=== PATIENT | female | born 1945 | race Hispanic/Latino ===

== ENCOUNTER 2018-02-11 01:05 | Inpatient (IN) | payer MEDICARE ==
[2018-02-11 02:21] LABS: Basophils % (Auto) 0.5 % (0.0-1.8); Eosinophils # (Auto) 0.1 K/mm3 (0.0-0.4); Eosinophils % (Auto) 1.5 % (0.0-4.3); Hematocrit 40.6 % (30.3-42.9); Hemoglobin 13.6 gm/dl (10.1-14.3); Lymphocytes # (Auto) 1.4 K/mm3 (1.2-5.4); Lymphocytes % (Auto) 15.3 % (13.4-35.0); Mean Corpuscular HGB Conc 34 % (30-34); Mean Corpuscular Hemoglobin 29 pg (28-32); Mean Corpuscular Volume 86 fl (79-97); Monocytes # (Auto) 0.9 K/mm3 (0.0-0.8); Monocytes % (Auto) 9.9 % (0.0-7.3); Platelet Count 192 K/mm3 (140-440); Red Blood Count 4.71 M/mm3 (3.65-5.03); Red Cell Distribution Width 14.4 % (13.2-15.2)
[2018-02-11 02:41] LABS: Alanine Aminotransferase 20 units/L (7-56); Albumin 3.9 g/dL (3.9-5); BUN/Creatinine Ratio 26; Blood Urea Nitrogen 13 mg/dL (7-17); Calcium 9.8 mg/dL (8.4-10.2); Hemolysis Index 9
--- NOTE | 2018-02-11 06:58 | Emergency Department Report ---
ED Abdominal Pain HPI - General Chief Complaint: Abdominal Pain Stated Complaint: ABD PAIN Time Seen by Provider: 02/11/18 06:45 Source: patient Mode of arrival: Stretcher Limitations: No Limitations - History of Present Illness MD Complaint: abdominal pain -: Sudden Location: LLQ Radiation: LLQ Migration to: LLQ Severity scale (0 -10): 9 Quality: stabbing, aching Improves With: rest Worsens With: movement Associated Symptoms: denies: nausea, vomiting, diarrhea, fever, chills, constipation, dysuria, hematemesis, hematochezia, melena, hematuria, anorexia, syncope - Related Data Home Medications Medication Instructions Recorded Confirmed Last Taken Lisinopril [Zestril TAB] 40 mg PO QDAY 08/13/16 02/11/18 02/10/18 Amlodipine Besylate [Norvasc] 10 mg PO DAILY 02/11/18 02/11/18 02/10/18 Aspirin [Adult Low Dose Aspirin EC] 81 mg PO DAILY 02/11/18 02/11/18 Unknown Atorvastatin Calcium [Lipitor] 40 mg PO HS 02/11/18 02/11/18 02/10/18 Furosemide [Lasix TAB] 40 mg PO QDAY 02/11/18 02/11/18 02/10/18 Metoprolol Xl [Metoprolol 50 mg PO QDAY 02/11/18 02/11/18 02/10/18 SUCCINATE ER TAB] Allergies Allergy/AdvReac Type Severity Reaction Status Date / Time No Known Allergies Allergy Unverified 08/13/16 07:23 ED Review of Systems ROS: Stated complaint: ABD PAIN Other details as noted in HPI Constitutional: denies: chills, fever Eyes: denies: eye pain, eye discharge, vision change ENT: denies: ear pain, throat pain Respiratory: denies: cough, shortness of breath, wheezing Cardiovascular: denies: chest pain, palpitations Endocrine: no symptoms reported Gastrointestinal: denies: abdominal pain, nausea, diarrhea Genitourinary: denies: urgency, dysuria, discharge Musculoskeletal: denies: back pain, joint swelling, arthralgia Skin: denies: rash, lesions Neurological: denies: headache, weakness, paresthesias Psychiatric: denies: anxiety, depression Hematological/Lymphatic: denies: easy bleeding, easy bruising ED Past Medical Hx - Past Medical History Previous Medical History?: Yes Hx Hypertension: Yes Hx Arthritis: Yes Hx Headaches / Migraines: Yes - Surgical History Past Surgical History?: Yes Hx Breast Surgery: Yes (BREAST) Additional Surgical History: 3 HEAD ANEURYSM CLIPPINGS - Family History Family history: hypertension - Social History Smoking Status: Never Smoker Substance Use Type: None - Medications Home Medications: Home Medications Medication Instructions Recorded Confirmed Last Taken Type Lisinopril [Zestril TAB] 40 mg PO QDAY 08/13/16 02/11/18 02/10/18 History Amlodipine Besylate [Norvasc] 10 mg PO DAILY 02/11/18 02/11/18 02/10/18 History Aspirin [Adult Low Dose Aspirin EC] 81 mg PO DAILY 02/11/18 02/11/18 Unknown History Atorvastatin Calcium [Lipitor] 40 mg PO HS 02/11/18 02/11/18 02/10/18 History Furosemide [Lasix TAB] 40 mg PO QDAY 02/11/18 02/11/18 02/10/18 History Metoprolol Xl [Metoprolol 50 mg PO QDAY 02/11/18 02/11/18 02/10/18 History SUCCINATE ER TAB] ED Physical Exam - General Limitations: No Limitations General appearance: alert, in no apparent distress - Head Head exam: Present: atraumatic, normocephalic - Eye Eye exam: Present: normal appearance - ENT ENT exam: Present: mucous membranes moist - Neck Neck exam: Present: normal inspection - Respiratory Respiratory exam: Present: normal lung sounds bilaterally. Absent: respiratory distress - Cardiovascular Cardiovascular Exam: Present: regular rate, normal rhythm. Absent: systolic murmur, diastolic murmur, rubs, gallop - GI/Abdominal GI/Abdominal exam: Present: soft, tenderness (severe left lower quadrant tenderness), normal bowel sounds - Extremities Exam Extremities exam: Present: normal inspection - Back Exam Back exam: Present: normal inspection - Neurological Exam Neurological exam: Present: alert, oriented X3 - Psychiatric Psychiatric exam: Present: normal affect, normal mood - Skin Skin exam: Present: warm, dry, intact, normal color. Absent: rash ED Course Vital Signs 02/11/18 02/11/18 02/11/18 01:12 01:43 08:10 Temperature 99.7 F H 99.7 F H Pulse Rate 78 74 Respiratory 16 18 Rate Blood Pressure 158/76 158/76 O2 Sat by Pulse 99 96 97 Oximetry 02/11/18 02/11/18 02/11/18 08:30 09:00 09:30 Temperature Pulse Rate Respiratory Rate Blood Pressure 132/60 127/61 122/55 O2 Sat by Pulse 93 93 95 Oximetry 02/11/18 02/11/18 02/11/18 10:00 10:30 11:00 Temperature Pulse Rate Respiratory Rate Blood Pressure 120/56 119/54 125/59 O2 Sat by Pulse 92 96 98 Oximetry 02/11/18 02/11/18 02/11/18 11:30 12:00 12:30 Temperature Pulse Rate Respiratory Rate Blood Pressure 127/51 117/56 124/52 O2 Sat by Pulse 98 94 97 Oximetry 02/11/18 02/11/18 02/11/18 13:00 13:30 14:00 Temperature Pulse Rate Respiratory Rate Blood Pressure 115/48 124/52 118/58 O2 Sat by Pulse 98 97 97 Oximetry - Reevaluation(s) Reevaluation #1: Consult the hospitalist for possible admission for acute diverticulitis. Discussed case with . Discussed plan of care and admission with patient. Patient agreed to be admitted. Discussed all results with patient. 02/11/18 08:58 ED Medical Decision Making - Lab Data Result diagrams: 02/11/18 02:10 02/11/18 02:10 - Radiology Data Radiology results: report reviewed diverticulitis on CT scan of abdomen and pelvis - Medical Decision Making She is a 72-year-old female who presents to emergency room with left lower quadrant pain. Patient found to have acute diverticulitis. Will admit patient to hospitalist service for further evaluation and treatment - Differential Diagnosis abd pain. Diverticulitis. Colitis. Gastroenteritis. Critical care attestation.: If time is entered above; I have spent that time in minutes in the direct care of this critically ill patient, excluding procedure time. ED Disposition Clinical Impression: Diverticulitis Abdominal pain Qualifiers: Abdominal location: left lower quadrant Qualified Code(s): R10.32 - Left lower quadrant pain Disposition: OP ADMIT IP TO THIS HOSP Is pt being admited?: Yes Does the pt Need Aspirin: No Condition: Serious Time of Disposition: 09:00
[2018-02-11 07:50] LABS: Bacteria,Urine 2+ /HPF (Negative); Bilirubin,Urine NEG (Negative); Blood,Urine NEG (Negative); Color,Urine Yellow (Yellow); Mucus,Urine FEW /HPF; Protein,Urine <15 mg/dL mg/dL (Negative); Urobilinogen,Urine < 2.0 mg/dL (<2.0)
[2018-02-11] MEDS ORDERED: DILAUDID IV ONE (07:54)
--- NOTE | 2018-02-11 08:08 | Cat Scan Report ---
CT ABDOMEN PELVIS WITH CONTRAST: HISTORY: Left lower quadrant abdominal pain. COMPARISON: none. TECHNIQUE: Helical CT in 1.25mm intervals following IV contrast. Sagittal and coronal reconstructions. FINDINGS: Lung bases: Normal. Liver: Normal. Biliary system: Normal. Pancreas: Normal. Spleen: Normal. Kidneys/ureters/bladder: Normal. Adrenal glands: The right adrenal gland is normal. A 1.3 cm intermediate density left adrenal nodule is identified. Internal density measures [address] with contrast. Aorta: Normal. Intestines: No oral contrast was administered which limits evaluation of the GI system. There is no evidence for obstruction. There are several diverticula in the sigmoid colon with mild surrounding inflammation. No abscess or free air. No obvious mass on this limited exam. Appendix: Not confidently identified. Pelvic viscera: Normal. Ascites: None. Adenopathy: None. Musculoskeletal: Moderate to severe lumbar spondylosis. No fracture or suspicious bony lesion is identified. IMPRESSION: Acute sigmoid diverticulitis. Indeterminate 1.3 cm left adrenal nodule. This may represent an adrenal adenoma.
[2018-02-11] MEDS: ZOFRAN IV ONE ×2 (08:34→09:21)
[2018-02-11] MEDS ORDERED: NACL 0.9% 1000 ML 1,000 ML IV SCH (09:00)
[2018-02-11] MEDS ORDERED: D5NS 0.2% 0 ML IV ONE (09:05)
[2018-02-11] MEDS: D5NS 1,000 ML IV SCH (09:34)
[2018-02-11] MEDS ORDERED: D5NS 1,000 ML IV SCH (10:00)
[2018-02-11] MEDS: ZOSYN/NS 3.375GM/50ML 3.375 GM/50 ML BAG IV SCH ×3 (10:05→18:33)
[2018-02-11] MEDS ORDERED: ZOFRAN IV PRN (12:21)
[2018-02-11] MEDS ORDERED: NORMODYNE IV PRN (12:21)
--- NOTE | 2018-02-11 12:34 | History and Physical Report ---
History of Present Illness Date of examination: 02/11/18 Chief complaint: Abdominal pains History of present illness: Patient is a 72 yo woman with a history of ICH/Brain aneursym s/p clips, hypertension, dyslipidemia, OA and migraines who presents with sudden onset of severe contant sharp LLQ abdominal pains radiation toward the right lower abdomen that started around 8:30pm last night without aggravating or relieving factors. She denies blood in stool, diarrhea, constipation, fevers or chills. This her first episode of this type of pains. PMH: as hpi, brain aneurysm with 3 clips >30 years ago, PSH: partial hysterectomy, breast bx, and brain clips SH: no tob/etoh abuse or illegal drug FH: hypertension and 2 sisters with dm ROS: Constitutional: denies: fever ENT: denies: throat or neck pain Respiratory: denies: cough, shortness of breath Cardiovascular: denies: chest pain Endocrine: denies unexplained weight loss or gain Gastrointestinal: +abd pains, denies: nausea, diarrhea, constipation Genitourinary: denies: dysuria Rectal: denies no incontinence, no bleeding, no itching, no discharge Musculoskeletal: denies swelling, myalgia, muscle weakness Skin: denies: rash Neurological: denies: headache Hematological/Lymphatic: denies: easy bleeding or easy bruising Allergic/Immunologic: no urticaria, no allergic rhinitis, no anaphylaxis Psych: denies sadness or hopelessness, SI/HI Medications and Allergies Allergies Allergy/AdvReac Type Severity Reaction Status Date / Time No Known Allergies Allergy Unverified 08/13/16 07:23 Home Medications Medication Instructions Recorded Confirmed Last Taken Type Aspirin 81 mg PO DAILY 08/13/16 08/13/16 08/12/16 History Butalb/Acetamin/Caff 50-325-40 1 tab PO Q6HR PRN #14 tab 08/13/16 Unknown Rx [Fioricet] Garlic 1 tab PO DAILY 08/13/16 08/13/16 08/12/16 History Labetalol [Normodyne TAB] 100 mg PO BID #60 tablet 08/13/16 Unknown Rx Lisinopril [Zestril TAB] 40 mg PO QDAY 08/13/16 08/13/16 08/13/16 History Multivitamin with Iron 1 tab PO DAILY 1108/13/16 08/12/16 History [Multivitamins with Iron] Vitamin E 1,000 unit PO DAILY 08/13/16 08/13/16 08/12/16 History carBAMazepine [TEGretol] 200 mg PO 4XD 08/13/16 08/13/16 08/12/16 History Active Meds: Active Medications Heparin Sodium (Porcine) (Heparin) 5,000 unit SUB-Q Q12HR ALTAGRACIA Piperacillin Sod/Tazobactam Sod (Zosyn/Ns 3.375gm/50ml) 3.375 gm in 50 mls @ 100 mls/hr IV Q6HR ALTAGRACIA Last Admin: 02/11/18 12:05 Dose: Not Given Dextrose/Sodium Chloride (D5ns) 1,000 mls @ 125 mls/hr IV DIRECT ALTAGRACIA Last Admin: 02/11/18 09:34 Dose: 125 mls/hr Labetalol HCl (Normodyne) 10 mg IV Q4H PRN PRN Reason: Blood Pressure Morphine Sulfate (Morphine) 2 mg IV Q3H PRN PRN Reason: Pain, Moderate (4-6) Ondansetron HCl (Zofran) 4 mg IV Q4H PRN PRN Reason: Nausea And Vomiting Pantoprazole Sodium (Protonix) 40 mg IV QDAY ALTAGRACIA Exam - Physical Exam Narrative exam: GEN: WDWN, NAD, Awake, Alert, Orientated x 3 HEENT: NCAT, EOMI, PERRL, OP Clear NECK: supple, no adenopathy, no thyromegaly, no JVD CVS/HEART: RRR, normal S1S2, pulses present bilaterally CHEST/LUNGS: CTA B, Symmetrical chest expansion, good air entry bilaterally GI/Abdomen: soft, LLQ tenderness, good bowel sounds, no guarding or rebound /Bladder: no suprapubic tenderness, no CVA or paraspinal tenderness EXT/Skin: no c/c/e, no obvious rash MSK: FROM x 4 Neuro: CN 2-12 grossly intact, no new focal deficits Psych: calm - Constitutional Vitals: Temp Pulse Resp BP Pulse Ox 99.7 F H 74 18 132/60 93 02/11/18 01:43 02/11/18 01:43 02/11/18 01:43 02/11/18 08:30 02/11/18 08:30 Results - Labs CBC & Chem 7: 02/11/18 02:10 02/11/18 02:10 Labs: Abnormal lab results 02/11/18 02/11/18 02/11/18 Range/Units 02:10 02:10 07:13 [place] % (Auto) 9.9 H (0.0-7.3) % [place] # 0.9 H (0.0-0.8) K/mm3 Seg Neutrophils % 72.8 H (40.0-70.0) % Creatinine 0.5 L (0.7-1.2) mg/dL Glucose 117 H (65-100) mg/dL Urine WBC (Auto) 58.0 H (0.0-6.0) /HPF U Epithel Cells (Auto) 28.0 H (0-13.0) /HPF Assessment and Plan Patient is a 72 yo woman with a history of ICH/Brain aneurysm s/p clips, hypertension, dyslipidemia, OA and migraines who presents with sudden onset of severe contant sharp LLQ abdominal pains radiation toward the right lower abdomen that started around 8:30pm last night without aggravating or relieving factors. She denies blood in stool, diarrhea, constipation, fevers or chills. This her first episode of this type of pains. -Acute sigmoid diverticulitis: npo, IVF, iv abx, consulted GI -Hypertension: npo, iv labetalol -ICH/Brain aneurysm in distant past -DVT prophylaxis: scd only due to the above
[2018-02-12] MEDS: PEPCID IV SCH ×3 (00:16→22:45)
[2018-02-12] MEDS: MORPHINE IV PRN ×3 (00:16→22:38)
[2018-02-12] MEDS: ZOSYN/NS 3.375GM/50ML 3.375 GM/50 ML BAG IV SCH ×5 (00:26→23:55)
[2018-02-12] MEDS: D5NS 1,000 ML IV SCH ×2 (01:30→22:48)
[2018-02-12] MEDS: HEPARIN SUB-Q SCH ×2 (09:33→22:46)
--- NOTE | 2018-02-12 09:50 | Gastroenterology Consultation ---
History of Present Illness - Reason for Consult Consult date: 02/12/18 diverticulitis Requesting physician: FANG LUNA - History of Present Illness The patient is a 72 year old female who was at her baseline state of reasonably good health until yesterday when she developed severe LLQ pain. She denies fever, chills, n/v, blood in the stools or diarrhea. Her last colonoscopy was 4 years ago at [facility] and she reports having a polyp. The patient has felt well overnight with diminution of her pain. She had no leukocytosis on admission and the CT revealed mild left colon diverticulitis with focal sigmoid inflammation. No abscess or free air was present. Past History Past Medical History: hypertension, other (Brain aneurysm requiring intervention.) Past Surgical History: Other (ICH with clipping of aneurysm) Social history: no significant social history Family history: no significant family history Medications and Allergies Allergies Allergy/AdvReac Type Severity Reaction Status Date / Time No Known Allergies Allergy Unverified 08/13/16 07:23 Home Medications Medication Instructions Recorded Confirmed Last Taken Type Lisinopril [Zestril TAB] 40 mg PO QDAY 08/13/16 02/11/18 02/10/18 History Amlodipine Besylate [Norvasc] 10 mg PO DAILY 02/11/18 02/11/18 02/10/18 History Aspirin [Adult Low Dose Aspirin EC] 81 mg PO DAILY 02/11/18 02/11/18 Unknown History Atorvastatin Calcium [Lipitor] 40 mg PO HS 02/11/18 02/11/18 02/10/18 History Furosemide [Lasix TAB] 40 mg PO QDAY 02/11/18 02/11/18 02/10/18 History Metoprolol Xl [Metoprolol 50 mg PO QDAY 02/11/18 02/11/18 02/10/18 History SUCCINATE ER TAB] Active Meds: Active Medications Famotidine (Pepcid) 20 mg IV BID [facility] Last Admin: 02/12/18 09:28 Dose: 20 mg Heparin Sodium (Porcine) (Heparin) 5,000 unit SUB-Q Q12HR [facility] Last Admin: 02/12/18 09:33 Dose: 5,000 unit Piperacillin Sod/Tazobactam Sod (Zosyn/Ns 3.375gm/50ml) 3.375 gm in 50 mls @ 100 mls/hr IV Q6HR ALTAGRACIA Last Admin: 02/12/18 06:00 Dose: 100 mls/hr Dextrose/Sodium Chloride (D5ns) 1,000 mls @ 125 mls/hr IV DIRECT ALTAGRACIA Last Admin: 02/12/18 01:30 Dose: 125 mls/hr Labetalol HCl (Normodyne) 10 mg IV Q4H PRN PRN Reason: Blood Pressure Morphine Sulfate (Morphine) 2 mg IV Q3H PRN PRN Reason: Pain, Moderate (4-6) Last Admin: 02/12/18 00:16 Dose: 2 mg Ondansetron HCl (Zofran) 4 mg IV Q4H PRN PRN Reason: Nausea And Vomiting Review of Systems - Review of Systems Constitutional: no weight loss, no weight gain, no fever, no chills Eyes: no change in vision Ears, Nose, Throat: no decreased hearing, no difficulty swallowing, no epistaxis Breasts: deferred Cardiovascular: no chest pain, no shortness of breath Respiratory: no cough, no shortness of breath, no wheezing, no home oxygen Gastrointestinal: abdominal pain, no nausea, no vomiting, no constipation, no coffee ground emesis, no melena, no hematochezia Rectal: no pain Female Genitourinary: deferred Musculoskeletal: no gait dysfunction, no joint pain, no muscle pain Integumentary: no rash, no pruritis, no jaundice Neurological: no paralysis, no weakness Psychiatric: no anxiety, no change in appetite Endocrine: no cold intolerance, no heat intolerance Hematologic/Lymphatic: no easy bruising, no easy bleeding Allergic/Immunologic: no wheezing Exam - Constitutional Vital Signs: Temp Pulse Resp BP Pulse Ox 98.6 F 59 L 20 133/68 98 02/12/18 07:20 02/12/18 07:20 02/12/18 07:43 02/12/18 07:20 02/12/18 07:43 General appearance: no acute distress, well-nourished - EENT Eyes: PERRL ENT: hearing intact, clear oral mucosa, dentition normal - Neck Neck: supple, normal ROM, no masses or JVD - Respiratory Respiratory effort: normal Respiratory: bilateral: CTA - Breasts Breasts: deferred - Cardiovascular Rhythm: regular Heart Sounds: Present: S1 & S2. Absent: gallop, rub Extremities: pulses intact, No edema, normal color, Full ROM - Gastrointestinal General gastrointestinal: Present: soft, tender (mild LLQ tenderness without rebound or guarding), non-distended, normal bowel sounds. Absent: hepatomegaly , splenomegaly, mass Rectal Exam: deferred - Genitourinary Female Genitourinary: deferred - Neurologic Neurological: alert and oriented x3 - Psychiatric Psychiatric: appropriate mood/affect, intact judgment & insight, memory intact - Labs CBC & Chem 7: 02/11/18 02:10 02/11/18 02:10 Assessment and Plan - Patient Problems (1) Diverticulitis Current Visit: Yes Status: Acute Plan to address problem: Mild diverticulitis with LLQ tenderness and an abnormal CT scan revealing pericolonic and peridiverticular inflammation. Ischemic colitis is also possible. Clinically she is doing well with improvement of pain and absence of fever or leukocytosis. Will advance diet to full liquids today. Needs outpatient colonoscopy in about 6-8 weeks. Colonoscopy is relatively contraindicated at this time. Home 1-2 days if doing well. I will s/o and plan on seeing her in the office in 2-3 weeks as outpatient. Thank you for this consultation.
[2018-02-12] MEDS ORDERED: PROTONIX IV SCH (10:00)
--- NOTE | 2018-02-12 10:53 | Progress Note ---
Assessment and Plan Assessment and plan: Patient is a 72 yo woman with a history of ICH/Brain aneurysm s/p clips, hypertension, dyslipidemia, OA and migraines who presents with sudden onset of severe contant sharp LLQ abdominal pains radiation toward the right lower abdomen that started around 8:30pm last night without aggravating or relieving factors. She denies blood in stool, diarrhea, constipation, fevers or chills. This her first episode of this type of pains. CT abd/pelvis w contrast IMPRESSION: Acute sigmoid diverticulitis. Indeterminate 1.3 cm left adrenal nodule. This may represent an adrenal adenoma. -Acute sigmoid diverticulitis: advance diet, IVF, iv abx, consulted GI -Hypertension: npo, iv labetalol -ICH/Brain aneurysm in distant past -Incidental adrenal adenoma: outpatient work-up and follow-up -DVT prophylaxis: scd only due to the above advance diet today and if tolerates wo n/v or worsening LLQ abd pains then d/c tomorrow History Interval history: Patient was seen and examined. Follow-up on current diagnosis of abd pains which has improved . Overnight uneventful. Patient denies any chest pain, shortness breath, nausea/vomiting or severe headaches. Imaging, nursing note, chart, labs and old chart reviewed. Discussed with patient. Jorge Chandler at bedside Hospitalist Physical - Physical exam Narrative exam: GEN: WDWN, NAD, Awake, Alert, Orientated x 3 HEENT: NCAT, EOMI, PERRL, OP Clear NECK: supple, no adenopathy, no thyromegaly, no JVD CVS/HEART: RRR, normal S1S2, pulses present bilaterally CHEST/LUNGS: CTA B, Symmetrical chest expansion, good air entry bilaterally GI/Abdomen: soft, LLQ tenderness, good bowel sounds, no guarding or rebound /Bladder: no suprapubic tenderness, no CVA or paraspinal tenderness EXT/Skin: no c/c/e, no obvious rash MSK: FROM x 4 Neuro: CN 2-12 grossly intact, no new focal deficits Psych: calm - Constitutional Vitals: Temp Pulse Resp BP Pulse Ox 98.6 F 59 L 20 133/68 98 02/12/18 07:20 02/12/18 07:20 02/12/18 07:43 02/12/18 07:20 02/12/18 07:43 Results - Labs CBC & Chem 7: 02/11/18 02:10 02/11/18 02:10 Labs: Laboratory Last Values WBC 9.1 K/mm3 (4.5-11.0) 02/11/18 02:10 RBC 4.71 M/mm3 (3.65-5.03) 02/11/18 02:10 Hgb 13.6 gm/dl (10.1-14.3) 02/11/18 02:10 Hct 40.6 % (30.3-42.9) 02/11/18 02:10 MCV 86 fl (79-97) 02/11/18 02:10 MCH 29 pg (28-32) 02/11/18 02:10 MCHC 34 % (30-34) 02/11/18 02:10 RDW 14.4 % (13.2-15.2) 02/11/18 02:10 Plt Count 192 K/mm3 (140-440) 02/11/18 02:10 Lymph % (Auto) 15.3 % (13.4-35.0) 02/11/18 02:10 [place] % (Auto) 9.9 % (0.0-7.3) H 02/11/18 02:10 Eos % (Auto) 1.5 % (0.0-4.3) 02/11/18 02:10 Baso % (Auto) 0.5 % (0.0-1.8) 02/11/18 02:10 Lymph # 1.4 K/mm3 (1.2-5.4) 02/11/18 02:10 [place] # 0.9 K/mm3 (0.0-0.8) H 02/11/18 02:10 Eos # 0.1 K/mm3 (0.0-0.4) 02/11/18 02:10 Baso # 0.0 K/mm3 (0.0-0.1) 02/11/18 02:10 Seg Neutrophils % 72.8 % (40.0-70.0) H 02/11/18 02:10 Seg Neutrophils # 6.6 K/mm3 (1.8-7.7) 02/11/18 02:10 Sodium 142 mmol/L (137-145) 02/11/18 02:10 Potassium 4.8 mmol/L (3.6-5.0) 02/11/18 02:10 Chloride 104.0 mmol/L (98-107) 02/11/18 02:10 Carbon Dioxide 28 mmol/L (22-30) 02/11/18 02:10 Anion Gap 15 mmol/L 02/11/18 02:10 BUN 13 mg/dL (7-17) 02/11/18 02:10 Creatinine 0.5 mg/dL (0.7-1.2) L 02/11/18 02:10 Estimated GFR > 60 ml/min 02/11/18 02:10 BUN/Creatinine Ratio 26 % 02/11/18 02:10 Glucose 117 mg/dL (65-100) H 02/11/18 02:10 Calcium 9.8 mg/dL (8.4-10.2) 02/11/18 02:10 Total Bilirubin 0.50 mg/dL (0.1-1.2) 02/11/18 02:10 AST 17 units/L (5-40) 02/11/18 02:10 ALT 20 units/L (7-56) 02/11/18 02:10 Alkaline Phosphatase 66 units/L (35-129) 02/11/18 02:10 Total Protein 7.0 g/dL (6.3-8.2) 02/11/18 02:10 Albumin 3.9 g/dL (3.9-5) 02/11/18 02:10 Albumin/Globulin Ratio 1.3 % 02/11/18 02:10 Urine Color Yellow (Yellow) 02/11/18 07:13 Urine Turbidity Cloudy (Clear) 02/11/18 07:13 Urine pH 6.0 (5.0-7.0) 02/11/18 07:13 Ur Specific [place] 1.018 (1.003-1.030) 02/11/18 07:13 Urine Protein <15 mg/dl mg/dL (Negative) 02/11/18 07:13 Urine Glucose (UA) Neg mg/dL (Negative) 02/11/18 07:13 Urine Ketones Neg mg/dL (Negative) 02/11/18 07:13 Urine Blood Neg (Negative) 02/11/18 07:13 Urine Nitrite Neg (Negative) 02/11/18 07:13 Urine Bilirubin Neg (Negative) 02/11/18 07:13 Urine Urobilinogen < 2.0 mg/dL (<2.0) 02/11/18 07:13 Ur Leukocyte Esterase Lg (Negative) 02/11/18 07:13 Urine WBC (Auto) 58.0 /HPF (0.0-6.0) H 02/11/18 07:13 Urine RBC (Auto) 4.0 /HPF (0.0-6.0) 02/11/18 07:13 U Epithel Cells (Auto) 28.0 /HPF (0-13.0) H 02/11/18 07:13 Urine Bacteria (Auto) 2+ /HPF (Negative) 02/11/18 07:13 Urine Mucus Few /HPF 02/11/18 07:13
[2018-02-13 08:09] VITALS: BP 146/71
[2018-02-13] MEDS: HEPARIN SUB-Q SCH (09:40)
[2018-02-13] MEDS: PEPCID IV SCH (09:40)
[2018-02-13] MEDS: D5NS 1,000 ML IV SCH (09:41)
--- NOTE | 2018-02-13 10:59 | Discharge Summary ---
Providers - Providers Date of Admission: 02/11/18 13:41 Date of discharge: 02/13/18 Attending physician: FANG LUNA 02/11/18 12:20 Consult to Physician [CONS] Routine Comment: BRANDI Consulting Provider: CHAPO ARRIOLA Physician Instructions: Consult was called to (Talked with Samaria) Reason For Exam: acute sigmoid diverticulitis Primary care physician: BOILERMAKER APPRENTICE Hospitalization Condition: Stable Hospital course: Patient is a 72 yo woman with a history of ICH/Brain aneurysm s/p clips, hypertension, dyslipidemia, OA and migraines who presents with sudden onset of severe contant sharp LLQ abdominal pains radiation toward the right lower abdomen that started around 8:30pm last night without aggravating or relieving factors. She denies blood in stool, diarrhea, constipation, fevers or chills. This her first episode of this type of pains. CT abd/pelvis w contrast IMPRESSION: Acute sigmoid diverticulitis. Indeterminate 1.3 cm left adrenal nodule. This may represent an adrenal adenoma. -Acute sigmoid diverticulitis: advanced diet and she tolerated -Hypertension: npo, iv labetalol -ICH/Brain aneurysm in distant past -Incidental adrenal adenoma: outpatient work-up and follow-up -DVT prophylaxis: scd only due to the above Disposition: DC-01 TO HOME OR SELFCARE Time spent for discharge: 34 min Core Measure Documentation - Palliative Care Palliative Care/ Comfort Measures: Not Applicable - Core Measures Any of the following diagnoses?: none - VTE Discharge Requirements Deep Vein Thrombosis/Pulmonary Embolism Present on Admission: No Has pt received <5 days of overlap therapy or INR<2.0: No Anticoagulant overlap therapy prescribed at discharge: No Contraindication No Overlap Therapy order at DC: Not Indicated Exam - Physical Exam Narrative exam: GEN: WDWN, NAD, Awake, Alert, Orientated x 3 HEENT: NCAT, EOMI, PERRL, OP Clear NECK: supple, no adenopathy, no thyromegaly, no JVD CVS/HEART: RRR, normal S1S2, pulses present bilaterally CHEST/LUNGS: CTA B, Symmetrical chest expansion, good air entry bilaterally GI/Abdomen: soft, LLQ tenderness, good bowel sounds, no guarding or rebound /Bladder: no suprapubic tenderness, no CVA or paraspinal tenderness EXT/Skin: no c/c/e, no obvious rash MSK: FROM x 4 Neuro: CN 2-12 grossly intact, no new focal deficits Psych: calm - Constitutional Vitals: Temp Pulse Resp BP Pulse Ox 98.5 F 62 18 146/71 99 02/13/18 07:23 02/13/18 07:23 02/13/18 07:23 02/13/18 07:23 02/13/18 07:23 Plan Activity: other (no strenous activity until cleared by PCP) Diet: low salt Additional Instructions: Colonoscopy in 6-8 weeks, see Dr. Arriola Follow up with: PRIMARY CAREMD [Primary Care Provider] - 3-5 Days CHAPO ARRIOLA MD [Staff Physician] - 7 Days Prescriptions: Ciprofloxacin HCl [Ciprofloxacin TAB] 500 mg PO BID #14 tab metroNIDAZOLE [Flagyl] 500 mg PO Q8H #56 tablet
== END 2018-02-13 13:06 | disposition home or self-care (01) | DRG 392 ==
LOC: ED 01:05 → 2B-ACE 13:41
PROVIDERS: ADMIT Internal Medicine; ATTEND Internal Medicine
DX: K57.32 Diverticulitis of large intestine without perforation or abscess without bleeding (principal); I10 Essential (primary) hypertension; E78.5 Hyperlipidemia, unspecified; M19.90 Unspecified osteoarthritis, unspecified site; G43.909 Migraine, unspecified, not intractable, without status migrainosus; D35.02 Benign neoplasm of left adrenal gland; Z90.711 Acquired absence of uterus with remaining cervical stump; Z83.3 Family history of diabetes mellitus; Z82.49 Family history of ischemic heart disease and other diseases of the circulatory system; Z79.82 Long term (current) use of aspirin; Z79.899 Other long term (current) drug therapy
CPT/HCPCS: 36415; 74177; 80053; 81001; 85025; 96361; 96374; 96375; J1170; J1644; J2270; J2405; J2543; J7042; Q9967

== ENCOUNTER 2018-02-20 18:51 | Inpatient (IN) | payer MEDICARE ==
[2018-02-20 19:52] LABS: Basophils # (Auto) 0.1 K/mm3 (0.0-0.1); Basophils % (Auto) 0.8 % (0.0-1.8); Eosinophils # (Auto) 0.1 K/mm3 (0.0-0.4); Eosinophils % (Auto) 1.6 % (0.0-4.3); Hematocrit 40.5 % (30.3-42.9); Hemoglobin 13.1 gm/dl (10.1-14.3); Lymphocytes # (Auto) 1.6 K/mm3 (1.2-5.4); Mean Corpuscular HGB Conc 32 % (30-34); Mean Corpuscular Hemoglobin 28 pg (28-32); Mean Corpuscular Volume 87 fl (79-97); Monocytes # (Auto) 0.8 K/mm3 (0.0-0.8); Monocytes % (Auto) 9.8 % (0.0-7.3); Platelet Count 228 K/mm3 (140-440); Red Blood Count 4.65 M/mm3 (3.65-5.03); Red Cell Distribution Width 14.3 % (13.2-15.2)
[2018-02-20 20:03] LABS: Bilirubin,Urine NEG (Negative); Blood,Urine NEG (Negative); Color,Urine Yellow (Yellow); Mucus,Urine 3+ /HPF; Protein,Urine <15 mg/dL mg/dL (Negative)
[2018-02-20 20:05] LABS: Alanine Aminotransferase 26 units/L (7-56); Albumin 3.8 g/dL (3.9-5); BUN/Creatinine Ratio 25; Blood Urea Nitrogen 15 mg/dL (7-17); Calcium 9.3 mg/dL (8.4-10.2); Hemolysis Index 10
[2018-02-20] MEDS ORDERED: NACL 0.9% 1000 ML 1,000 ML IV ONE (22:44)
[2018-02-20] MEDS ORDERED: MORPHINE IV ONE (22:44)
[2018-02-20] MEDS ORDERED: ZOFRAN IV ONE (22:44)
--- NOTE | 2018-02-20 22:49 | Emergency Department Report ---
ED Abdominal Pain HPI - General Chief Complaint: Abdominal Pain Stated Complaint: ABDOMINAL PAIN Time Seen by Provider: 02/20/18 22:31 Source: patient Mode of arrival: Ambulatory Limitations: No Limitations - History of Present Illness Initial Comments: Patient is 72 years old female with past medical history of hypertension. Patient was recently discharged from the hospital after she was diagnosed with sigmoid diverticulitis. Patient stated that her pain was never better and she continued to vomits and have a loose diarrhea. Patient denied any fever. She stated that her pain now is diffuse. Patient denied any chest pain or shortness of breath. MD Complaint: abdominal pain Location: diffuse Radiation: none Migration to: no migration Severity scale (0 -10): 10 Quality: cramping, stabbing Consistency: constant Associated Symptoms: nausea, vomiting, diarrhea - Related Data Home Medications Medication Instructions Recorded Confirmed Last Taken Lisinopril [Zestril TAB] 40 mg PO QDAY 08/13/16 02/11/18 02/10/18 Amlodipine Besylate [Norvasc] 10 mg PO DAILY 02/11/18 02/11/18 02/10/18 Aspirin [Adult Low Dose Aspirin EC] 81 mg PO DAILY 02/11/18 02/11/18 Unknown Atorvastatin Calcium [Lipitor] 40 mg PO HS 02/11/18 02/11/18 02/10/18 Furosemide [Lasix TAB] 40 mg PO QDAY 02/11/18 02/11/18 02/10/18 Metoprolol Xl [Metoprolol 50 mg PO QDAY 02/11/18 02/11/18 02/10/18 SUCCINATE ER TAB] Previous Rx's Medication Instructions Recorded Last Taken Type Ciprofloxacin HCl [Ciprofloxacin 500 mg PO BID #14 tab 02/13/18 Unknown Rx TAB] metroNIDAZOLE [Flagyl] 500 mg PO Q8H #56 tablet 02/13/18 Unknown Rx Allergies Allergy/AdvReac Type Severity Reaction Status Date / Time No Known Allergies Allergy Unverified 08/13/16 07:23 ED Review of Systems ROS: Stated complaint: ABDOMINAL PAIN Other details as noted in HPI Comment: All other systems reviewed and negative Constitutional: denies: chills, fever Respiratory: denies: cough, orthopnea, shortness of breath, SOB with exertion, SOB at rest, wheezing Cardiovascular: denies: chest pain, palpitations, dyspnea on exertion Gastrointestinal: abdominal pain, nausea, vomiting, diarrhea. denies: constipation, hematemesis, melena, hematochezia Musculoskeletal: denies: back pain Neurological: denies: headache, weakness, numbness, paresthesias ED Past Medical Hx - Past Medical History Previous Medical History?: Yes Hx Hypertension: Yes Hx Arthritis: Yes (bilateral shoulders/back/left hip/bilateral legs/left ankle) Hx Headaches / Migraines: Yes - Surgical History Past Surgical History?: Yes Hx Breast Surgery: Yes (BREAST) Additional Surgical History: 3 HEAD ANEURYSM CLIPPINGS - Social History Smoking Status: Never Smoker Substance Use Type: None - Medications Home Medications: Home Medications Medication Instructions Recorded Confirmed Last Taken Type Lisinopril [Zestril TAB] 40 mg PO QDAY 08/13/16 02/11/18 02/10/18 History Amlodipine Besylate [Norvasc] 10 mg PO DAILY 02/11/18 02/11/18 02/10/18 History Aspirin [Adult Low Dose Aspirin EC] 81 mg PO DAILY 02/11/18 02/11/18 Unknown History Atorvastatin Calcium [Lipitor] 40 mg PO HS 02/11/18 02/11/18 02/10/18 History Furosemide [Lasix TAB] 40 mg PO QDAY 02/11/18 02/11/18 02/10/18 History Metoprolol Xl [Metoprolol 50 mg PO QDAY 02/11/18 02/11/18 02/10/18 History SUCCINATE ER TAB] Ciprofloxacin HCl [Ciprofloxacin 500 mg PO BID #14 tab 02/13/18 Unknown Rx TAB] metroNIDAZOLE [Flagyl] 500 mg PO Q8H #56 tablet 02/13/18 Unknown Rx ED Physical Exam - General Limitations: No Limitations General appearance: alert, in no apparent distress - Head Head exam: Present: atraumatic, normocephalic, normal inspection - Eye Eye exam: Present: normal appearance - ENT ENT exam: Present: normal exam, normal orophraynx, mucous membranes dry - Neck Neck exam: Present: normal inspection, full ROM. Absent: tenderness, meningismus, lymphadenopathy, thyromegaly - Respiratory Respiratory exam: Present: normal lung sounds bilaterally. Absent: respiratory distress, wheezes, rales, rhonchi, stridor, chest wall tenderness, accessory muscle use, decreased breath sounds, prolonged expiratory - Cardiovascular Cardiovascular Exam: Present: regular rate, normal rhythm, normal heart sounds - GI/Abdominal GI/Abdominal exam: Present: soft, tenderness (diffuse), normal bowel sounds. Absent: distended, guarding, rebound, rigid, organomegaly, mass, bruit, pulsatile mass, hernia - Extremities Exam Extremities exam: Present: normal inspection, full ROM, normal capillary refill - Back Exam Back exam: Present: normal inspection, full ROM. Absent: tenderness, CVA tenderness (R), CVA tenderness (L), muscle spasm, paraspinal tenderness, vertebral tenderness, rash noted - Neurological Exam Neurological exam: Present: alert, oriented X3, CN II-XII intact, normal gait - Skin Skin exam: Present: warm, dry, intact ED Course Vital Signs 02/20/18 19:21 Temperature 98.6 F Pulse Rate 81 Respiratory 17 Rate Blood Pressure 141/56 O2 Sat by Pulse 99 Oximetry ED Medical Decision Making - Lab Data Result diagrams: 02/20/18 19:39 02/20/18 19:39 - Radiology Data Radiology results: report reviewed Referring Physician: CHICO GORMAN Patient Name: BILLIE WARREN Date of : 1945 Sex: Female Report Date: 2018-02-21 Report Status: [place] [address] Cat Scan Report Signed Patient: BILLIE WARREN MR#: [id number] : 1945 Acct:[id number] Age/Sex: 72 / F ADM Date: 02/20/18 Loc: ED Attending Dr: Ordering Physician: CHICO GORMAN Date of Service: 02/20/18 Procedure(s): CT abdomen pelvis w con Accession Number(s): [id number] cc: CHICO GORMAN FINAL REPORT EXAM: CT ABDOMEN PELVIS W CON HISTORY: abdominal pain/ diverticulitis one wk ago COMPARISON: None available. TECHNIQUE: Contiguous axial images were obtained. Additional sagittal and coronal reformatted images were obtained. Administration of IV contrast given per institution protocol. Images submitted for interpretation. FINDINGS: Focal wall thickening and fat stranding of the proximal to mid descending colon with inflamed diverticula outpouchings. Mild diverticulitis in this region. No free air or abscess. Remaining bowel loops normal in caliber. Moderate stool within the majority the colon. The appendix is not visualized may be small in size are surgically absent. Mild linear atelectasis at the lung bases. No calcified gallstones or biliary dilatation. Homogeneous enhancement of the liver, spleen, pancreas. Mild nodular thickening of adrenal glands. No solid renal lesion or hydronephrosis. 5 millimeter left renal cyst. Aorta and IVC are normal in caliber. Mild to moderate calcified plaque along the aorta. Urinary bladder is unremarkable. Uterus is surgically absent. Moderate degenerative changes of the lumbar spine. Lumbar vertebral body heights preserved. IMPRESSION: Mild acute diverticulitis of the proximal sigmoid colon. No free air or abscess. Remaining bowel loops are normal in caliber. Transcribed By: LMA Dictated By: LYNDSEY NY MD Electronically Authenticated By: LYNDSEY NY MD Signed Date/Time: 02/21/181 DD/ TD/TT: 02/21/18 0002 - Medical Decision Making I discussed the patient is Dr. Angel, he agreed to admit the patient to his service. Critical care attestation.: If time is entered above; I have spent that time in minutes in the direct care of this critically ill patient, excluding procedure time. ED Disposition Clinical Impression: Abdominal pain, Diverticulitis Disposition: OP ADMIT IP TO THIS HOSP Is pt being admited?: Yes Condition: Stable Instructions: Abdominal Pain (ED) Referrals: PRIMARY CARE, [Primary Care Provider] - 3-5 Days
[2018-02-20] MEDS: ZOSYN/NS 3.375GM/50ML 3.375 GM/50 ML BAG IV SCH (22:58)
--- NOTE | 2018-02-21 00:06 | Cat Scan Report ---
FINAL REPORT EXAM: CT ABDOMEN PELVIS W CON HISTORY: abdominal pain/ diverticulitis one wk ago COMPARISON: None available. TECHNIQUE: Contiguous axial images were obtained. Additional sagittal and coronal reformatted images were obtained. Administration of IV contrast given per institution protocol. Images submitted for interpretation. FINDINGS: Focal wall thickening and fat stranding of the proximal to mid descending colon with inflamed diverticula outpouchings. Mild diverticulitis in this region. No free air or abscess. Remaining bowel loops normal in caliber. Moderate stool within the majority the colon. The appendix is not visualized may be small in size are surgically absent. Mild linear atelectasis at the lung bases. No calcified gallstones or biliary dilatation. Homogeneous enhancement of the liver, spleen, pancreas. Mild nodular thickening of adrenal glands. No solid renal lesion or hydronephrosis. 5 millimeter left renal cyst. Aorta and IVC are normal in caliber. Mild to moderate calcified plaque along the aorta. Urinary bladder is unremarkable. Uterus is surgically absent. Moderate degenerative changes of the lumbar spine. Lumbar vertebral body heights preserved. IMPRESSION: Mild acute diverticulitis of the proximal sigmoid colon. No free air or abscess. Remaining bowel loops are normal in caliber.
[2018-02-21] MEDS: ZOSYN/NS 3.375GM/50ML 3.375 GM/50 ML BAG IV SCH ×3 (02:57→12:00)
--- NOTE | 2018-02-21 06:51 | Event Note ---
Date: 02/21/18 See dictated history and physical in reports
[2018-02-21] MEDS ORDERED: MORPHINE IV PRN (08:00)
[2018-02-21] MEDS ORDERED: NACL 0.9% 1000 ML 1,000 ML IV SCH (08:00)
[2018-02-21] MEDS ORDERED: SODIUM CHLORIDE FLUSH SYRINGE 10 ML IV PRN (08:00)
[2018-02-21] MEDS ORDERED: TYLENOL PO PRN (08:00)
[2018-02-21] MEDS: SODIUM CHLORIDE FLUSH SYRINGE 10 ML IV SCH ×2 (09:02→22:32)
[2018-02-21] MEDS: PEPCID IV SCH ×2 (09:07→22:30)
[2018-02-21] MEDS: FLAGYL 500 MG/100 ML 500 MG/100 ML BAG IV SCH ×3 (09:07→22:31)
--- NOTE | 2018-02-21 09:46 | Progress Note ---
Assessment and Plan Abdominal pain secondary to sigmoid diverticulitis NPO IV Levaquin, Vanc and Zosyn Subjective Date of service: 02/21/18 Principal diagnosis: sigmoid diverticulitis Interval history: still having abdominal pain Objective - Constitutional Vitals: Vital Signs - 12hr 02/20/18 02/21/18 02/21/18 23:26 00:00 00:54 Temperature 98.0 F Pulse Rate 84 88 Respiratory 18 18 18 Rate Blood Pressure Blood Pressure 144/67 139/72 [Left] O2 Sat by Pulse 99 98 98 Oximetry 02/21/18 02/21/18 02/21/18 02:16 02:37 02:48 Temperature 97.8 F Pulse Rate 72 78 73 Respiratory 16 18 18 Rate Blood Pressure 156/59 Blood Pressure 136/71 136/71 [Left] O2 Sat by Pulse 98 99 100 Oximetry 02/21/18 02:56 Temperature Pulse Rate Respiratory 20 Rate Blood Pressure Blood Pressure [Left] O2 Sat by Pulse Oximetry General appearance: Present: no acute distress, well-nourished - EENT Eyes: PERRL, EOM intact Ears: bilateral: normal - Neck Neck: supple, normal ROM - Respiratory Respiratory: bilateral: CTA - Cardiovascular Rhythm: regular Heart Sounds: Present: S1 & S2. Absent: gallop, rub Extremities: pulses intact, No edema, normal color, Full ROM - Gastrointestinal General gastrointestinal: Present: soft, non-tender, non-distended, normal bowel sounds - Genitourinary Female genitourinary: normal - Integumentary Integumentary: clear, warm, dry - Musculoskeletal Musculoskeletal: 1, strength equal bilaterally - Neurologic Neurologic: moves all extremities - Psychiatric Psychiatric: memory intact, appropriate mood/affect, intact judgment & insight - Labs CBC & Chem 7: 02/20/18 19:39 02/20/18 19:39 Labs: Abnormal lab results 02/20/18 02/20/18 02/20/18 Range/Units 19:39 19:39 Unknown [place] % (Auto) 9.8 H (0.0-7.3) % Creatinine 0.6 L (0.7-1.2) mg/dL Glucose 102 H (65-100) mg/dL Albumin 3.8 L (3.9-5) g/dL U Epithel Cells (Auto) 21.0 H (0-13.0) /HPF
[2018-02-21] MEDS ORDERED: CATAPRES-TTS PATCH TD SCH (10:00)
--- NOTE | 2018-02-21 10:18 | History and Physical Report ---
CHIEF COMPLAINT: Abdominal pain. HISTORY OF PRESENT ILLNESS: A 72-year-old female with history of hypertension, comes in for left lower quadrant pain. The patient was recently discharged from the hospital after being diagnosed with sigmoid diverticulitis. The patient states that she now feels better and she continue to have vomiting and some loose diarrhea. The patient states the pain is diffuse, but more in the left lower quadrant. No fever or chills. Pain is about 8 on a scale of 1-10. PAST MEDICAL HISTORY: Significant for hypertension, arthritis, and migraine headaches. PAST SURGICAL HISTORY: Breast surgery and aneurysm clipping in the brain. SOCIAL HISTORY: Does not smoke. No alcohol, no recreational drugs. FAMILY HISTORY: Hypertension. REVIEW OF SYSTEMS: Significant for diffuse abdominal pain and pain is about 8 on a scale of 1-10, intermittent in nature. No fever. No chills. A 14-point review of systems done, otherwise negative. PHYSICAL EXAMINATION: GENERAL: Elderly female, cooperative during examination. VITAL SIGNS: Blood pressure is 139/73, temperature is 98, pulse is 88, respirations are 18, sats are 98%. HEENT: Unremarkable. Pupils equal and reactive. NECK: Supple, no lymphadenopathy, no thyromegaly. LUNGS: Clear to auscultation and percussion. Good air entry. CARDIOVASCULAR: S1, S2 heard. No gallop, no murmur, no rub. Apical impulse in left fifth intercostal space and midclavicular line. ABDOMEN: Tender, especially in the left lower quadrant. Guarding present. No rigidity. Hernial orifices are normal. EXTREMITIES: Good pedal pulses. No pedal edema. LABORATORY DATA: White count is 8700, H and H is 13 and 40.5. Electrolytes are normal. Glucose is 102. Albumin is slightly low at 3.8. Urine shows epithelial cells 21. Abdominal CAT scan shows mild acute diverticulitis of the proximal sigmoid colon. No free air or abscess. ASSESSMENT AND PLAN: 1. Acute diverticulitis. The patient was treated with IV Zosyn and IV Flagyl. IV fluids. Keep patient n.p.o. 2. Pain management. Continue morphine. 3. Hypertension. Continue Catapres patch. We will hold the lisinopril and metoprolol for the time being. 4. Hyperlipidemia. We will hold the statins. 5. Congestive heart failure. We will hold the Lasix and give IV Lasix 20. 6. Deep venous thrombosis prophylaxis, heparin 5000 q.12. JOB# [id number] MABEL/MANDA
--- NOTE | 2018-02-21 14:21 | Consultation ---
History of Present Illness Consult date: 02/21/18 Requesting physician: JEFRY BACA Chief complaint: diverticulitis - History of present illness History of present illness: 72-year-old female with past medical history of HTN, brain aneurysm s/p clipping presented to the hospital with complaints of left lower quadrant abdominal pain x1 day, sharp, associated with eating. Patient was recently hospitalized on 02/11 for acute uncomplicated sigmoid diverticulitis. She was treated conservatively with abx and bowel rest and seen by GI in consultation. The patient's pain improved and she was discharged home on a diet and on abx. The patient states that after she went home she ate a meal of fried fish, fried shrimp, and broccoli and started to experience left lower quadrant pain again. She's also been having 5 soft stools a day. No melena or hematochezia. She denies fevers, chills, chest pain, shortness of breath. She has never had a known episode of diverticulitis prior to this month. Her last colonoscopy was 4 years ago and revealed a single polyp. Past History Past Medical History: hypertension, other (brain aneurysm) Past Surgical History: , hysterectomy, Other (brain aneurysm clipping) Social history: no significant social history Family history: no significant family history Medications and Allergies Allergies Allergy/AdvReac Type Severity Reaction Status Date / Time No Known Allergies Allergy Unverified 08/13/16 07:23 Home Medications Medication Instructions Recorded Confirmed Last Taken Type Lisinopril [Zestril TAB] 40 mg PO QDAY 08/13/16 02/11/18 02/10/18 History Amlodipine Besylate [Norvasc] 10 mg PO DAILY 02/11/18 02/11/18 02/10/18 History Aspirin [Adult Low Dose Aspirin EC] 81 mg PO DAILY 02/11/18 02/11/18 Unknown History Atorvastatin Calcium [Lipitor] 40 mg PO HS 02/11/18 02/11/18 02/10/18 History Furosemide [Lasix TAB] 40 mg PO QDAY 02/11/18 02/11/18 02/10/18 History Metoprolol Xl [Metoprolol 50 mg PO QDAY 02/11/18 02/11/18 02/10/18 History SUCCINATE ER TAB] Ciprofloxacin HCl [Ciprofloxacin 500 mg PO BID #14 tab 02/13/18 Unknown Rx TAB] metroNIDAZOLE [Flagyl] 500 mg PO Q8H #56 tablet 02/13/18 Unknown Rx Active Meds: Active Medications Acetaminophen (Tylenol) 650 mg PO Q4H PRN PRN Reason: Pain MILD(1-3)/Fever >100.5/MICHELE Clonidine HCl (Catapres-Tts Patch) 0.2 mg TD QWEEK [facility] Last Admin: 02/21/18 10:48 Dose: 0.2 mg Famotidine (Pepcid) 20 mg IV BID [facility] Last Admin: 02/21/18 09:07 Dose: 20 mg Piperacillin Sod/Tazobactam Sod (Zosyn/Ns 3.375gm/50ml) 3.375 gm in 50 mls @ 100 mls/hr IV Q6HR [facility] Last Admin: 02/21/18 12:00 Dose: 100 mls/hr Sodium Chloride (Nacl 0.9% 1000 Ml) 1,000 mls @ 42 mls/hr IV DIRECT [facility] Last Admin: 02/21/18 08:58 Dose: 42 mls/hr Metronidazole (Flagyl 500 Mg/100 Ml) 500 mg in 100 mls @ 100 mls/hr IV Q8HR [facility] ; Protocol Last Admin: 02/21/18 13:33 Dose: 100 mls/hr Morphine Sulfate (Morphine) 4 mg IV Q4H PRN PRN Reason: Pain, Moderate (4-6) Ondansetron HCl (Zofran) 4 mg IV Q8H PRN PRN Reason: Nausea And Vomiting Sodium Chloride (Sodium Chloride Flush Syringe 10 Ml) 10 ml IV BID [facility] Last Admin: 02/21/18 09:02 Dose: 10 ml Sodium Chloride (Sodium Chloride Flush Syringe 10 Ml) 10 ml IV PRN PRN PRN Reason: LINE FLUSH Review of Systems All systems: negative (10 point review of systems was performed and negative except for above in HPI) Exam Vital Signs Temp Pulse Resp BP Pulse Ox 98.6 F 81 17 141/56 99 02/20/18 19:21 02/20/18 19:21 02/20/18 19:21 02/20/18 19:21 02/20/18 19:21 Narrative exam: General: Awake, alert, oriented 3. No apparent distress ENT: No scleral icterus or conjunctival pallor CV: S1, S2 positive Respiratory: Clear to auscultation bilaterally, no wheezes, rales, rhonchi Abdomen: Soft, nondistended, mild tenderness to palpation in the left lower quadrant. No rebound, rigidity, guarding Extremities: No clubbing, cyanosis, edema Results - Labs 02/20/18 19:39 02/20/18 19:39 Abnormal lab results 02/20/18 02/20/18 02/20/18 Range/Units 19:39 19:39 Unknown [place] % (Auto) 9.8 H (0.0-7.3) % Creatinine 0.6 L (0.7-1.2) mg/dL Glucose 102 H (65-100) mg/dL Albumin 3.8 L (3.9-5) g/dL U Epithel Cells (Auto) 21.0 H (0-13.0) /HPF Diabetes panel 02/20/18 02/21/18 Range/Units 19:39 11:22 Sodium 143 (137-145) mmol/L Potassium 4.1 (3.6-5.0) mmol/L Chloride 105.4 (98-107) mmol/L Carbon Dioxide 24 (22-30) mmol/L BUN 15 (7-17) mg/dL Creatinine 0.6 L (0.7-1.2) mg/dL Glucose 102 H (65-100) mg/dL Hemoglobin A1c 5.8 (4-6) % Calcium 9.3 (8.4-10.2) mg/dL AST 22 (5-40) units/L ALT 26 (7-56) units/L Alkaline Phosphatase 62 (35-129) units/L Total Protein 6.6 (6.3-8.2) g/dL Albumin 3.8 L (3.9-5) g/dL Calcium panel 02/20/18 Range/Units 19:39 Calcium 9.3 (8.4-10.2) mg/dL Albumin 3.8 L (3.9-5) g/dL Pituitary panel 02/20/18 Range/Units 19:39 Sodium 143 (137-145) mmol/L Potassium 4.1 (3.6-5.0) mmol/L Chloride 105.4 (98-107) mmol/L Carbon Dioxide 24 (22-30) mmol/L BUN 15 (7-17) mg/dL Creatinine 0.6 L (0.7-1.2) mg/dL Glucose 102 H (65-100) mg/dL Calcium 9.3 (8.4-10.2) mg/dL Adrenal panel 02/20/18 Range/Units 19:39 Sodium 143 (137-145) mmol/L Potassium 4.1 (3.6-5.0) mmol/L Chloride 105.4 (98-107) mmol/L Carbon Dioxide 24 (22-30) mmol/L BUN 15 (7-17) mg/dL Creatinine 0.6 L (0.7-1.2) mg/dL Glucose 102 H (65-100) mg/dL Calcium 9.3 (8.4-10.2) mg/dL Total Bilirubin 0.20 (0.1-1.2) mg/dL AST 22 (5-40) units/L ALT 26 (7-56) units/L Alkaline Phosphatase 62 (35-129) units/L Total Protein 6.6 (6.3-8.2) g/dL Albumin 3.8 L (3.9-5) g/dL - Imaging CT scan - abdomen: report reviewed, image reviewed CT scan - pelvis: report reviewed, image reviewed Assessment and Plan 72-year-old female with acute uncomplicated sigmoid diverticulitis Plan: 1. This is the same episode of diverticulitis as last admission, likely exacerbated by eating fried foods and raw vegetables. The patient should be educated on proper dietary choices for diverticulitis. I educated the patient on what foods she should be eating during this time. I will obtain a nutrition consult for more comprehensive counselling 2. start clear liquids 3. continue abx - change to levaquin and flagyl, dc zosyn 4. gentle maintenance IVF 5. OOB/ambulate 6. outpatient cscope in 4-6 weeks 7. I had a long discussion with the patient regarding surgery for diverticulosis. This is the patient's first episode and is uncomplicated and therefore surgery is not necessarily recommended at this time. However, if she decides that she does want elective sigmoidectomy to remove part of colon affected by diverticulosis, this is acceptable option and she may follow up with me as an outpatient after colonoscopy for further discussion. Otherwise, will continue conservative management with diet and routine colonoscopies. Will follow up in am. Thank you for this consultation, please call with questions or concerns.
[2018-02-21] MEDS: LEVAQUIN PO SCH (15:55)
[2018-02-21] MEDS ORDERED: D5/0.45NS 1,000 ML IV SCH (20:00)
[2018-02-21] MEDS: ZOFRAN IV PRN (22:30)
[2018-02-22 05:30] LABS: Basophils % (Auto) 0.7 % (0.0-1.8); Eosinophils # (Auto) 0.1 K/mm3 (0.0-0.4); Hematocrit 37.1 % (30.3-42.9); Hemoglobin 12.3 gm/dl (10.1-14.3); Lymphocytes # (Auto) 1.2 K/mm3 (1.2-5.4); Lymphocytes % (Auto) 29.7 % (13.4-35.0); Mean Corpuscular HGB Conc 33 % (30-34); Mean Corpuscular Hemoglobin 28 pg (28-32); Mean Corpuscular Volume 86 fl (79-97); Monocytes # (Auto) 0.5 K/mm3 (0.0-0.8); Monocytes % (Auto) 11.5 % (0.0-7.3); Platelet Count 193 K/mm3 (140-440); Red Blood Count 4.32 M/mm3 (3.65-5.03); Red Cell Distribution Width 14.3 % (13.2-15.2)
[2018-02-22 05:56] LABS: Alanine Aminotransferase 18 units/L (7-56); Albumin 3.4 g/dL (3.9-5); BUN/Creatinine Ratio 14; Blood Urea Nitrogen 7 mg/dL (7-17); Calcium 8.7 mg/dL (8.4-10.2); Hemolysis Index 20
[2018-02-22] MEDS: FLAGYL 500 MG/100 ML 500 MG/100 ML BAG IV SCH (06:03)
[2018-02-22] MEDS: PEPCID IV SCH (09:55)
[2018-02-22] MEDS: SODIUM CHLORIDE FLUSH SYRINGE 10 ML IV SCH ×2 (09:56→22:06)
--- NOTE | 2018-02-22 10:23 | Progress Note ---
Assessment and Plan Assessment and plan: Patient is a 72-year-old woman who presented to the emergency department with complaints of left lower quadrant abdominal pain. Acute diverticulitis Continue Levaquin and yl General surgeon following- diet advanced to a soft foods, outpatient cscope in 4 -6 weeks, will f/u with Dr. Han as outpatient after cscope Hypertension Continue Catapres patch, we'll continue to hold all other antihypertensives Hyperlipidemia Continue statin therapy Congestive heart failure Continue diuresis with Lasix History Interval history: Patient seen and examined. She continues to complain of left lower quadrant abdominal pain. No other complaints at this time. Labs and nursing notes reviewed. Hospitalist Physical - Physical exam Narrative exam: General appearance: Present: no acute distress, well-nourished - EENT Eyes: Present: PERRL, EOM intact ENT: hearing intact, clear oral mucosa - Neck Present: supple, normal ROM - Respiratory Respiratory effort: normal Respiratory: bilateral: CTA - Cardiovascular Rhythm: regular Heart Sounds: Present: S1 & S2 - Extremities Extremities: no ischemia, No edema - Abdominal General gastrointestinal: soft, left lower quadrant tenderness, non-distended - Integumentary Integumentary: Present: clear, warm, dry - Psychiatric Psychiatric: appropriate mood/affect, intact judgment & insight, cooperative - Neurologic Neurologic: CNII-XII intact, moves all extremities - Constitutional Vitals: Temp Pulse Resp BP Pulse Ox 98.7 F 63 18 139/71 98 02/22/18 07:26 02/22/18 10:00 02/22/18 10:00 02/22/18 07:26 02/22/18 10:00 General appearance: Present: no acute distress, well-nourished Results - Labs CBC & Chem 7: 02/22/18 05:13 02/22/18 05:13 Labs: Laboratory Last Values WBC 4.2 K/mm3 (4.5-11.0) L 02/22/18 05:13 RBC 4.32 M/mm3 (3.65-5.03) 02/22/18 05:13 Hgb 12.3 gm/dl (10.1-14.3) 02/22/18 05:13 Hct 37.1 % (30.3-42.9) 02/22/18 05:13 MCV 86 fl (79-97) 02/22/18 05:13 MCH 28 pg (28-32) 02/22/18 05:13 MCHC 33 % (30-34) 02/22/18 05:13 RDW 14.3 % (13.2-15.2) 02/22/18 05:13 Plt Count 193 K/mm3 (140-440) 02/22/18 05:13 Lymph % (Auto) 29.7 % (13.4-35.0) 02/22/18 05:13 [place] % (Auto) 11.5 % (0.0-7.3) H 02/22/18 05:13 Eos % (Auto) 2.0 % (0.0-4.3) 02/22/18 05:13 Baso % (Auto) 0.7 % (0.0-1.8) 02/22/18 05:13 Lymph # 1.2 K/mm3 (1.2-5.4) 02/22/18 05:13 [place] # 0.5 K/mm3 (0.0-0.8) 02/22/18 05:13 Eos # 0.1 K/mm3 (0.0-0.4) 02/22/18 05:13 Baso # 0.0 K/mm3 (0.0-0.1) 02/22/18 05:13 Seg Neutrophils % 56.1 % (40.0-70.0) 02/22/18 05:13 Seg Neutrophils # 2.3 K/mm3 (1.8-7.7) 02/22/18 05:13 Sodium 141 mmol/L (137-145) 02/22/18 05:13 Potassium 3.6 mmol/L (3.6-5.0) 02/22/18 05:13 Chloride 104.6 mmol/L (98-107) 02/22/18 05:13 Carbon Dioxide 25 mmol/L (22-30) 02/22/18 05:13 Anion Gap 15 mmol/L 02/22/18 05:13 BUN 7 mg/dL (7-17) 02/22/18 05:13 Creatinine 0.5 mg/dL (0.7-1.2) L 02/22/18 05:13 Estimated GFR > 60 ml/min 02/22/18 05:13 BUN/Creatinine Ratio 14 % 02/22/18 05:13 Glucose 114 mg/dL (65-100) H 02/22/18 05:13 Hemoglobin A1c 5.8 % (4-6) 02/21/18 11:22 Calcium 8.7 mg/dL (8.4-10.2) 02/22/18 05:13 Total Bilirubin 0.40 mg/dL (0.1-1.2) 02/22/18 05:13 AST 14 units/L (5-40) 02/22/18 05:13 ALT 18 units/L (7-56) 02/22/18 05:13 Alkaline Phosphatase 48 units/L (35-129) 02/22/18 05:13 Total Protein 5.9 g/dL (6.3-8.2) L 02/22/18 05:13 Albumin 3.4 g/dL (3.9-5) L 02/22/18 05:13 Albumin/Globulin Ratio 1.4 % 02/22/18 05:13 Urine Color Yellow (Yellow) 02/20/18 Unknown Urine Turbidity Clear (Clear) 02/20/18 Unknown Urine pH 5.0 (5.0-7.0) 02/20/18 Unknown Ur Specific [place] 1.024 (1.003-1.030) 02/20/18 Unknown Urine Protein <15 mg/dl mg/dL (Negative) 02/20/18 Unknown Urine Glucose (UA) Neg mg/dL (Negative) 02/20/18 Unknown Urine Ketones Tr mg/dL (Negative) 02/20/18 Unknown Urine Blood Neg (Negative) 02/20/18 Unknown Urine Nitrite Neg (Negative) 02/20/18 Unknown Urine Bilirubin Neg (Negative) 02/20/18 Unknown Urine Urobilinogen 2.0 mg/dL (<2.0) 02/20/18 Unknown Ur Leukocyte Esterase Sm (Negative) 02/20/18 Unknown Urine WBC (Auto) 3.0 /HPF (0.0-6.0) 02/20/18 Unknown Urine RBC (Auto) 9.0 /HPF (0.0-6.0) 02/20/18 Unknown U Epithel Cells (Auto) 21.0 /HPF (0-13.0) H 02/20/18 Unknown Urine Mucus 3+ /HPF 02/20/18 Unknown
[2018-02-22] MEDS ORDERED: ULTRAM PO PRN (10:41)
--- NOTE | 2018-02-22 14:27 | Progress Note ---
Assessment and Plan 72-year-old female with acute uncomplicated sigmoid diverticulitis Plan: 1. adv to soft diet 2. continue abx - levaquin flagyl. DC on cipro and flagyl x 14 days total 3. dc IVF 4. OOB/ambulate 5. outpatient cscope in 4-6 weeks 6. will f/u with patient as outpatient after cscope 7. PRN PO pain control, may dc with tramadol Ok to DC from surgery standpoint. Thank you for this consultation, please call with questions or concerns. Subjective Date of service: 02/22/18 Narrative: Pt seen and examined. No overnight events. No acute complaints. States she is having multiple soft BMs. No f/c. No n/v. Abd pain improved. Tolerated liquids yesterday and soft diet this am. Seen by continuous improvement director and given information regarding appropriate diet. Objective Vital Signs - 12hr 02/22/18 02/22/18 07:26 10:00 Temperature 98.7 F Pulse Rate 63 Pulse Rate [ 63 Right Radial] Respiratory 18 18 Rate Blood Pressure 139/71 O2 Sat by Pulse 98 98 Oximetry - General physical appearance Narrative Exam: Gne: AAOx3. NAD CV: S1, S2+ Resp: even and unlabored Abd: soft, ND, mild discomfort on palpation of LLQ, no r/r/g Ext; no c/c/e - Labs 02/22/18 05:13 02/22/18 05:13 Diabetes panel 02/22/18 Range/Units 05:13 Sodium 141 (137-145) mmol/L Potassium 3.6 (3.6-5.0) mmol/L Chloride 104.6 (98-107) mmol/L Carbon Dioxide 25 (22-30) mmol/L BUN 7 (7-17) mg/dL Creatinine 0.5 L (0.7-1.2) mg/dL Glucose 114 H (65-100) mg/dL Calcium 8.7 (8.4-10.2) mg/dL AST 14 (5-40) units/L ALT 18 (7-56) units/L Alkaline Phosphatase 48 (35-129) units/L Total Protein 5.9 L (6.3-8.2) g/dL Albumin 3.4 L (3.9-5) g/dL Calcium panel 02/22/18 Range/Units 05:13 Calcium 8.7 (8.4-10.2) mg/dL Albumin 3.4 L (3.9-5) g/dL Pituitary panel 02/22/18 Range/Units 05:13 Sodium 141 (137-145) mmol/L Potassium 3.6 (3.6-5.0) mmol/L Chloride 104.6 (98-107) mmol/L Carbon Dioxide 25 (22-30) mmol/L BUN 7 (7-17) mg/dL Creatinine 0.5 L (0.7-1.2) mg/dL Glucose 114 H (65-100) mg/dL Calcium 8.7 (8.4-10.2) mg/dL Adrenal panel 02/22/18 Range/Units 05:13 Sodium 141 (137-145) mmol/L Potassium 3.6 (3.6-5.0) mmol/L Chloride 104.6 (98-107) mmol/L Carbon Dioxide 25 (22-30) mmol/L BUN 7 (7-17) mg/dL Creatinine 0.5 L (0.7-1.2) mg/dL Glucose 114 H (65-100) mg/dL Calcium 8.7 (8.4-10.2) mg/dL Total Bilirubin 0.40 (0.1-1.2) mg/dL AST 14 (5-40) units/L ALT 18 (7-56) units/L Alkaline Phosphatase 48 (35-129) units/L Total Protein 5.9 L (6.3-8.2) g/dL Albumin 3.4 L (3.9-5) g/dL
[2018-02-22] MEDS: LEVAQUIN PO SCH (14:29)
[2018-02-22] MEDS: FLAGYL PO SCH ×2 (14:29→22:05)
[2018-02-22] MEDS: ZOFRAN IV PRN (20:33)
[2018-02-22] MEDS: PEPCID PO SCH (22:05)
[2018-02-23] MEDS: FLAGYL PO SCH ×2 (05:42→15:05)
[2018-02-23 08:59] VITALS: BP 137/77
[2018-02-23] MEDS ORDERED: LASIX PO SCH (10:00)
[2018-02-23] MEDS: PEPCID PO SCH (10:03)
[2018-02-23] MEDS: SODIUM CHLORIDE FLUSH SYRINGE 10 ML IV SCH (10:03)
--- NOTE | 2018-02-23 13:34 | Discharge Summary ---
Providers - Providers Date of Admission: 02/21/18 00:53 Date of discharge: 02/23/18 Attending physician: FANG LUNA 02/21/18 08:00 Consult to Physician [CONS] Routine Comment: called dr. florian /jeimy Consulting Provider: CAITLIN COBIAN Physician Instructions: Reason For Exam: Diverticulitis 02/22/18 10:41 Consult to Dietitian/Nutrition [CONS] Routine Physician Instructions: Reason For Exam: Reason for Consult: diverticulitis, need diet education Primary care physician: WATER RESOURCES ENGINEER Hospitalization Condition: Stable Hospital course: Patient is a 72-year-old woman who presented to the emergency department with complaints of left lower quadrant abdominal pain. Acute diverticulitis Continue Levaquin and Flagyl General surgeon following- diet advanced to a soft foods, outpatient cscope in 4 -6 weeks, will f/u with Dr. Han as outpatient after cscope Hypertension Continue Catapres patch, we'll continue to hold all other antihypertensives Hyperlipidemia Continue statin therapy Congestive heart failure Continue diuresis with Lasix Disposition: DC/TX-06 HOME UNDER HOME [facility] Time spent for discharge: 32 min Core Measure Documentation - Palliative Care Palliative Care/ Comfort Measures: Not Applicable - Core Measures Any of the following diagnoses?: none - VTE Discharge Requirements Deep Vein Thrombosis/Pulmonary Embolism Present on Admission: No Has pt received <5 days of overlap therapy or INR<2.0: No Anticoagulant overlap therapy prescribed at discharge: No Contraindication No Overlap Therapy order at DC: Not Indicated Exam - Constitutional Vitals: Temp Pulse Resp BP Pulse Ox 98.3 F 74 20 137/77 95 02/23/18 07:57 02/23/18 04:38 02/23/18 07:57 02/23/18 07:57 02/23/18 04:38 General appearance: Present: no acute distress - EENT Eyes: Present: PERRL ENT: hearing intact - Neck Neck: Present: supple, normal ROM - Respiratory Respiratory effort: normal Respiratory: bilateral: CTA - Cardiovascular Rhythm: regular Heart Sounds: Present: S1 & S2 - Abdominal General gastrointestinal: Present: soft, non-tender, non-distended, normal bowel sounds Plan Activity: other (no strenous activity) Diet: advance as tolerated Follow up with: PRIMARY CARE, [Primary Care Provider] - 3-5 Days Prescriptions: Levofloxacin [Levaquin TAB] 500 mg PO Q24H #5 tablet metroNIDAZOLE [Flagyl TAB] 500 mg PO TID #30 tablet traMADol [Ultram 50 MG tab] 50 mg PO Q6H PRN #10 tablet PRN Reason: Pain, Moderate (4-6)
[2018-02-23] MEDS: LEVAQUIN PO SCH (15:04)
[2018-02-28] MEDS ORDERED: CATAPRES-TTS PATCH TD SCH (12:00)
== END 2018-02-23 16:15 | disposition home or self-care (01) | DRG 392 ==
LOC: ED 18:51 → 2B-ACE 02-21 00:53
PROVIDERS: ADMIT Internal Medicine; ATTEND Internal Medicine
DX: K57.32 Diverticulitis of large intestine without perforation or abscess without bleeding (principal); I50.9 Heart failure, unspecified; I11.0 Hypertensive heart disease with heart failure; M15.0 Primary generalized (osteo)arthritis; G43.909 Migraine, unspecified, not intractable, without status migrainosus; E78.5 Hyperlipidemia, unspecified; Z79.82 Long term (current) use of aspirin
CPT/HCPCS: 36415; 74177; 80053; 81001; 83036; 85025; A9270-GY; J2270; J2405; J2543; J7030; Q9967

== ENCOUNTER 2018-06-16 13:47 | Inpatient (IN) | payer MEDICARE ==
[2018-06-16] MEDS ORDERED: TYLENOL PO ONE (13:56)
[2018-06-16] MEDS ORDERED: TYLENOL ONE (13:58)
[2018-06-16] MEDS ORDERED: NORMODYNE IV ONE (16:37)
--- NOTE | 2018-06-16 16:39 | Emergency Department Report ---
Blank Doc - Documentation Documentation: Patient is a 73-year-old asthmatic female who has a past medical history of hypertension who is compliant with her meds who is presenting with dizziness and near syncope. Patient states yesterday she got up to open the door for someone and had an acute onset of dizziness and spinning sensation. Patient states she felt as though she was going to pass out and hold on to the wall did not fall. Patient was evening started feeling somewhat better but woke up this morning with the same symptoms. Patient also has a global headache as well that she states is 8 out of 10 in severity. Patient does not have a history of headaches. A focused physical exam patient is able to move all extremities with 5 out of 5 strength is speaking in full sentences. Heart and lungs sounds are within normal limits. Patient is keeping her eyes closed secondary to dizziness. Patient will be moved to the main ED for further management. Patient be placed on a monitor and a stroke alert order set has been placed.
--- NOTE | 2018-06-16 17:02 | Emergency Department Report ---
- General Chief complaint: High BP Stated complaint: BLOOD PRESSURE Time Seen by Provider: 06/16/18 16:45 Source: patient Mode of arrival: Ambulatory Limitations: No Limitations - History of Present Illness Initial comments: Is a 73-year-old female presents emergency room weakness and headache and dizziness that started yesterday afternoon at 2 PM. Last known well 2 PM on 08/2018. Patient states she took her blood pressure work and it was elevated. Patient is compliant with medication. Patient denies chest pain shortness of breath. Patient denies loss of consciousness. Patient denies neck pain. Patient denies blurry vision. Patient states the headache is better with rest and worse with exertion. Patient states she feels better when she lies still. MD Complaint: generalized weakness -: Sudden Location: generalized Severity scale (0 -10): 9 - Related Data Home Medications Medication Instructions Recorded Confirmed Last Taken Lisinopril [Zestril TAB] 40 mg PO QDAY 08/13/16 02/22/18 02/20/18 10:00 40mg Amlodipine Besylate [Norvasc] 10 mg PO DAILY 02/11/18 02/22/18 02/20/18 10:00 Aspirin [Adult Low Dose Aspirin EC] 81 mg PO DAILY 02/11/18 02/22/18 02/21/18 10 :00 Furosemide [Lasix TAB] 40 mg PO QDAY 02/11/18 02/22/18 02/20/18 10:00 40mg Metoprolol Xl [Metoprolol 50 mg PO QDAY 02/11/18 02/22/18 02/20/18 10:00 SUCCINATE ER TAB] 50mg Previous Rx's Medication Instructions Recorded Last Taken Type Acetaminophen [Acetaminophen TAB] 650 mg PO Q4H PRN #30 tablet 02/23/18 Unknown Rx Atorvastatin Calcium [Lipitor] 40 mg PO HS #30 02/23/18 02/19/18 22:00 Rx Famotidine [Pepcid] 20 mg PO BID #30 tablet 02/23/18 Unknown Rx levoFLOXacin [Levaquin TAB] 500 mg PO Q24H #5 tablet 02/23/18 Unknown Rx metroNIDAZOLE [Flagyl TAB] 500 mg PO TID #30 tablet 02/23/18 Unknown Rx traMADol [Ultram 50 MG tab] 50 mg PO Q6H PRN #10 tablet 02/23/18 Unknown Rx Allergies Allergy/AdvReac Type Severity Reaction Status Date / Time No Known Allergies Allergy Verified 06/16/18 13:51 ED Review of Systems ROS: Stated complaint: BLOOD PRESSURE Other details as noted in HPI Constitutional: weakness. denies: chills, fever Eyes: denies: eye pain, eye discharge, vision change ENT: denies: ear pain, throat pain Respiratory: denies: cough, shortness of breath, wheezing Cardiovascular: denies: chest pain, palpitations Endocrine: no symptoms reported Gastrointestinal: denies: abdominal pain, nausea, diarrhea Genitourinary: denies: urgency, dysuria, discharge Musculoskeletal: denies: back pain, joint swelling, arthralgia Skin: denies: rash, lesions Neurological: headache, weakness, vertigo. denies: paresthesias Psychiatric: denies: anxiety, depression Hematological/Lymphatic: denies: easy bleeding, easy bruising ED Past Medical Hx - Past Medical History Previous Medical History?: Yes Hx Hypertension: Yes Hx Arthritis: Yes (bilateral shoulders/back/left hip/bilateral legs/left ankle) Hx Headaches / Migraines: Yes - Surgical History Past Surgical History?: Yes Hx Breast Surgery: Yes (BREAST) Additional Surgical History: 3 HEAD ANEURYSM CLIPPINGS - Family History Family history: hypertension - Social History Smoking Status: Never Smoker Substance Use Type: None - Medications Home Medications: Home Medications Medication Instructions Recorded Confirmed Last Taken Type Lisinopril [Zestril TAB] 40 mg PO QDAY 08/13/16 02/22/18 02/20/18 10:00 History 40mg Amlodipine Besylate [Norvasc] 10 mg PO DAILY 02/11/18 02/22/18 02/20/18 10:00 History Aspirin [Adult Low Dose Aspirin EC] 81 mg PO DAILY 02/11/18 02/22/18 02/21/18 10 :00 History Furosemide [Lasix TAB] 40 mg PO QDAY 02/11/18 02/22/18 02/20/18 10:00 History 40mg Metoprolol Xl [Metoprolol 50 mg PO QDAY 02/11/18 02/22/18 02/20/18 10:00 History SUCCINATE ER TAB] 50mg Acetaminophen [Acetaminophen TAB] 650 mg PO Q4H PRN #30 tablet 02/23/18 Unknown Rx Atorvastatin Calcium [Lipitor] 40 mg PO HS #30 02/23/18 02/22/18 02/19/18 22:00 Rx Famotidine [Pepcid] 20 mg PO BID #30 tablet 02/23/18 Unknown Rx levoFLOXacin [Levaquin TAB] 500 mg PO Q24H #5 tablet 02/23/18 Unknown Rx metroNIDAZOLE [Flagyl TAB] 500 mg PO TID #30 tablet 02/23/18 Unknown Rx traMADol [Ultram 50 MG tab] 50 mg PO Q6H PRN #10 tablet 02/23/18 Unknown Rx ED Physical Exam - General Limitations: No Limitations General appearance: alert, in no apparent distress - Head Head exam: Present: atraumatic, normocephalic - Eye Eye exam: Present: normal appearance - ENT ENT exam: Present: mucous membranes moist - Neck Neck exam: Present: normal inspection - Respiratory Respiratory exam: Present: normal lung sounds bilaterally. Absent: respiratory distress - Cardiovascular Cardiovascular Exam: Present: regular rate, normal rhythm. Absent: systolic murmur, diastolic murmur, rubs, gallop - GI/Abdominal GI/Abdominal exam: Present: soft, normal bowel sounds - Extremities Exam Extremities exam: Present: normal inspection - Back Exam Back exam: Present: normal inspection - Neurological Exam Neurological exam: Present: alert, oriented X3 - Psychiatric Psychiatric exam: Present: normal affect, normal mood - Skin Skin exam: Present: warm, dry, intact, normal color. Absent: rash - Assessment Assessment Interval: Baseline - Level of Consciousness 1a. Level of Consciousness: alert/keenly responsive - LOC Questions 1b. LOC Questions: answers both correctly - LOC Command 1c. LOC Commands: performs tasks correctly - Best Gaze 2. Best Gaze: normal - Visual 3. Visual: no visual loss - Facial Palsy 4. Facial Palsy: normal symmetrical movement - Motor Arm 5b. Motor Arm Right: no drift 5a. Motor Arm Left: no drift - Motor Leg 6a. Motor Leg Left: no drift 6b. Motor Leg Right: no drift - Limb Ataxia 7. Limb Ataxia: absent - Sensory 8. Sensory: normal - Best Language 9. Best Language: no aphasia - Dysarthria 10. Dysarthria: normal - Extinction and Inattention 11. Extinction/Inattention: no abnormality - Scoring Total Score: 0 Stroke Severity: No Stroke Symptoms ED Course Vital Signs 06/16/18 06/16/18 06/16/18 13:51 17:06 17:10 Temperature 98.9 F Pulse Rate 68 Respiratory 20 15 Rate Blood Pressure 195/87 194/70 Blood Pressure [Right] O2 Sat by Pulse 100 99 Oximetry 06/16/18 06/16/18 06/16/18 17:12 17:17 17:30 Temperature Pulse Rate 65 65 64 Respiratory 10 L Rate Blood Pressure 194/70 169/68 Blood Pressure [Right] O2 Sat by Pulse 98 Oximetry 06/16/18 06/16/18 06/16/18 18:00 18:30 19:00 Temperature Pulse Rate 64 65 66 Respiratory 19 17 22 Rate Blood Pressure 159/68 159/72 164/69 Blood Pressure [Right] O2 Sat by Pulse 91 98 97 Oximetry 06/16/18 06/16/18 06/16/18 19:31 20:01 20:15 Temperature Pulse Rate 73 72 69 Respiratory 12 20 15 Rate Blood Pressure 179/71 179/71 Blood Pressure 164/68 [Right] O2 Sat by Pulse 99 98 99 Oximetry - Reevaluation(s) Reevaluation #1: CT head negative. Will go ahead and order a CTA of the head and neck. Patient is unable to have an MRI due to having aneurysm clips. 06/16/18 16:51 - Consultations Consultation #1: Was consulted for admission. Hospitalist to admit patient. Dr. Couch to assume care 06/16/18 20:26 ED Medical Decision Making - Lab Data Result diagrams: 06/16/18 16:58 06/16/18 16:58 - EKG Data -: EKG Interpreted by Me EKG shows normal: sinus rhythm, axis, QRS complexes, ST-T waves Rate: normal - Radiology Data Radiology results: report reviewed, image reviewed interpreted by me: radilogist called with reports at 1950 and all cta negative. FINAL REPORT EXAM: CT HEAD/BRAIN WO CON HISTORY: Stroke symptoms TECHNIQUE: CT examination of the head without IV contrast PRIORS: None. FINDINGS: Bilateral central skullbase aneurysm clip. Metal artifact limits the examination. Prior left frontoparietal craniotomy bilaterally. Scattered slight mucosal thickening in the ethmoid sinuses. Frontal and sphenoid sinuses clear. Clear mastoid air cells and middle ear cavities. No acute air-fluid level visualized in the included air-filled sinuses. Bone windows demonstrate no acute fracture. The brain is without mass, mass effect, hemorrhage, or acute infarct. There is no extra-axial intracranial bleed, brain bleed, or midline shift. The ventricles and sulci are age-appropriate. IMPRESSION: No acute CVA, intracranial bleed, or brain mass Findings suggest prior bilateral aneurysm clipping [facility] operation office support associate verbally gave report to Dr. Galvez on 06/16/2018 at 5:07 p.m. EST Transcribed By: RO Dictated By: MONIKA PERAZA MD Electronically Authenticated By: MONIKA PERAZA MD Signed Date/Time: 06/16/18 457 FINAL REPORT EXAM: CT ANGIO NECK HISTORY: dizzy, weakness TECHNIQUE: Spiral CTA of the neck after the uneventful administration of IV contrast. Multiplanar reformations. 3D image post-procesessing was performed on an independent work station. 150 mL Omnipaque IV. PRIORS: None. FINDINGS: Normal enhancement of the bilateral CCAs, ICAs and ECAs. Bilateral CCAs extend medially in the retropharyngeal region. Very mild, calcific atherosclerotic change in the right proximal ICA and left carotid bulb. No abnormal aneurysmal dilatation, apparent dissection, significant stenosis or occlusion. Vertebral arteries are patent, with mild left-sided dominance. Degenerative change in the cervical spine. IMPRESSION: 1. Less than 50% carotid stenosis by NASCET criteria. Transcribed By: [facility] Dictated By: SOPHIA WATT MD Electronically Authenticated By: SOPHIA WATT MD Signed Date/Time: 06/16/181952 - Medical Decision Making She is a 73-year-old female presents with dizziness and weakness and headache 24 hours. Patient had a head CT done that was negative. Patient had a CTA of the neck and heaD and negative.. Patient's attended to the hospitalist service for further evaluation treatment. - Differential Diagnosis cva. dizziness. weakness. dehydration. htn. Critical Care Time: Yes Critical care attestation.: If time is entered above; I have spent that time in minutes in the direct care of this critically ill patient, excluding procedure time. Critical Care Time: 35 minutes for cc time ED Disposition Clinical Impression: Weakness, Dizziness Hypertension Qualifiers: Hypertension type: essential hypertension Qualified Code(s): I10 - Essential ( primary) hypertension Headache Qualifiers: Headache type: unspecified Headache chronicity pattern: acute headache Intractability: intractable Qualified Code(s): R51 - Headache Disposition: DC-09 OP ADMIT IP TO THIS HOSP Is pt being admited?: Yes Does the pt Need Aspirin: No Condition: Critical Time of Disposition: 20:27
[2018-06-16 17:10] LABS: Basophils # (Auto) 0.1 K/mm3 (0.0-0.1); Basophils % (Auto) 1.2 % (0.0-1.8); Eosinophils # (Auto) 0.4 K/mm3 (0.0-0.4); Eosinophils % (Auto) 6.6 % (0.0-4.3); Hemoglobin 14.6 gm/dl (10.1-14.3); Lymphocytes # (Auto) 2.2 K/mm3 (1.2-5.4); Lymphocytes % (Auto) 38.5 % (13.4-35.0); Mean Corpuscular HGB Conc 33 % (30-34); Mean Corpuscular Hemoglobin 29 pg (28-32); Mean Corpuscular Volume 87 fl (79-97); Monocytes # (Auto) 0.4 K/mm3 (0.0-0.8); Monocytes % (Auto) 7.6 % (0.0-7.3); Platelet Count 208 K/mm3 (140-440); Red Blood Count 5.08 M/mm3 (3.65-5.03); Red Cell Distribution Width 14.6 % (13.2-15.2)
--- NOTE | 2018-06-16 17:10 | Cat Scan Report ---
FINAL REPORT EXAM: CT HEAD/BRAIN WO CON HISTORY: Stroke symptoms TECHNIQUE: CT examination of the head without IV contrast PRIORS: None. FINDINGS: Bilateral central skullbase aneurysm clip. Metal artifact limits the examination. Prior left frontoparietal craniotomy bilaterally. Scattered slight mucosal thickening in the ethmoid sinuses. Frontal and sphenoid sinuses clear. Clear mastoid air cells and middle ear cavities. No acute air-fluid level visualized in the included air-filled sinuses. Bone windows demonstrate no acute fracture. The brain is without mass, mass effect, hemorrhage, or acute infarct. There is no extra-axial intracranial bleed, brain bleed, or midline shift. The ventricles and sulci are age-appropriate. IMPRESSION: No acute CVA, intracranial bleed, or brain mass Findings suggest prior bilateral aneurysm clipping [facility] operation sales support consultant verbally gave report to Dr. Galvez on 06/16/2018 at 5:07 p.m. EST
[2018-06-16 17:25] LABS: INR 0.91 (0.87-1.13)
[2018-06-16 17:26] LABS: Partial Thromboplastin Time 26.9 Sec. (24.2-36.6); Thrombin Time 16.1 Sec. (15.1-19.6)
[2018-06-16 17:28] LABS: BUN/Creatinine Ratio 24; Blood Urea Nitrogen 12 mg/dL (7-17); Calcium 10.2 mg/dL (8.4-10.2); Hemolysis Index 51
[2018-06-16 17:33] LABS: Creatine Kinase MB 1.3 ng/mL (0.0-4.0)
--- NOTE | 2018-06-16 19:53 | Cat Scan Report ---
FINAL REPORT EXAM: CT ANGIO NECK HISTORY: dizzy, weakness TECHNIQUE: Spiral CTA of the neck after the uneventful administration of IV contrast. Multiplanar reformations. 3D image post-procesessing was performed on an independent work station. 150 mL Omnipaque IV. PRIORS: None. FINDINGS: Normal enhancement of the bilateral CCAs, ICAs and ECAs. Bilateral CCAs extend medially in the retropharyngeal region. Very mild, calcific atherosclerotic change in the right proximal ICA and left carotid bulb. No abnormal aneurysmal dilatation, apparent dissection, significant stenosis or occlusion. Vertebral arteries are patent, with mild left-sided dominance. Degenerative change in the cervical spine. IMPRESSION: 1. Less than 50% carotid stenosis by NASCET criteria.
[2018-06-16] MEDS ORDERED: PROVENTIL IH PRN (20:13)
[2018-06-16] MEDS ORDERED: REGLAN PO PRN (20:13)
[2018-06-16] MEDS ORDERED: DULCOLAX PR PRN (20:13)
[2018-06-16] MEDS ORDERED: MILK OF MAGNESIA PO PRN (20:13)
[2018-06-16] MEDS ORDERED: ZOFRAN IV PRN (20:13)
[2018-06-16] MEDS ORDERED: SODIUM CHLORIDE FLUSH SYRINGE 10 ML IV PRN (20:13)
[2018-06-16] MEDS ORDERED: PHENERGAN PR PRN (20:13)
--- NOTE | 2018-06-16 20:13 | History and Physical Report ---
History of Present Illness Chief complaint: I feel weak History of present illness: 73 YO Female with Obesity, HTN, OA, Migraine Headache presents to ED for evaluation. Pt states that she was in her usual state of health until 1400 hrs on the day prior to admission. Pt states that she experienced an acute onset of dizziness, blurred vision, weakness, and inability to speak. Pt also states that she felt like she was going to pass out. Pt symptoms resolved after "some time", but generalized weakness persisted. Pt went to work to day, and took her blood pressure and found it to bed elevated. Pt seen and evaluated in ED and found to have symptoms consistent with CVA. Pt outside therapeutic window for TPA. Pt admitted to telemetry. Past History Past Medical History: arthritis, hypertension, hyperlipidemia, migraines, other (ICH) Past Surgical History: Other (Brain surgery) Social history: single. denies: smoking, alcohol abuse, prescription drug abuse Family history: hypertension Medications and Allergies Allergies Allergy/AdvReac Type Severity Reaction Status Date / Time No Known Allergies Allergy Verified 06/16/18 13:51 Home Medications Medication Instructions Recorded Confirmed Last Taken Type Lisinopril [Zestril TAB] 40 mg PO QDAY 08/13/16 06/16/18 06/16/18 History Amlodipine Besylate [Norvasc] 10 mg PO DAILY 02/11/18 06/16/18 06/16/18 History Aspirin [Adult Low Dose Aspirin EC] 81 mg PO DAILY 02/11/18 06/16/18 06/15/18 History Furosemide [Lasix TAB] 40 mg PO QDAY 02/11/18 06/16/18 06/15/18 History Metoprolol Xl [Metoprolol 50 mg PO QDAY 02/11/18 06/16/18 06/16/18 History SUCCINATE ER TAB] Acetaminophen [Acetaminophen TAB] 650 mg PO Q4H PRN #30 tablet 02/23/18 Unknown Rx Atorvastatin Calcium [Lipitor] 40 mg PO HS #30 02/23/18 06/16/18 06/15/18 Rx Famotidine [Pepcid] 20 mg PO BID #30 tablet 02/23/18 06/16/18 06/16/18 Rx traMADol [Ultram 50 MG tab] 50 mg PO Q6H PRN #10 tablet 02/23/18 06/16/18 Rx Review of Systems Constitutional: no weight loss, no weight gain, no fever, no chills Ears, nose, mouth and throat: no ear pain, no ear discharge, no tinnitis, no decreased hearing, no nose pain Breasts: no change in shape, no swelling, no mass Cardiovascular: no chest pain, no orthopnea, no palpitations, no rapid/ irregular heart beat, no edema, no syncope Respiratory: no cough, no cough with sputum, no excessive sputum, no hemoptysis Gastrointestinal: no nausea, no vomiting, no diarrhea, no constipation Genitourinary Female: no pelvic pain, no flank pain, no menorrhagia, no dysuria , no urinary frequency, no urgency Rectal: no pain, no incontinence, no bleeding Musculoskeletal: no neck stiffness, no neck pain, no shooting arm pain, no arm numbness/tingling, no low back pain, no shooting leg pain Integumentary: no rash, no pruritis, no redness, no sores, no wounds Neurological: weakness, lack of coordination, change in speech, confusion, no tingling, no seizures Psychiatric: no anxiety, no memory loss, no change in sleep habits, no sleep disturbances, no insomnia Endocrine: no cold intolerance, no heat intolerance, no polyphagia, no excessive thirst Hematologic/Lymphatic: no easy bruising, no easy bleeding, no lymphadenopathy Allergic/Immunologic: no urticaria, no allergic rhinitis, no wheezing, no persistent infections Exam - Constitutional Vitals: Temp Pulse Resp BP Pulse Ox 98.9 F 65 17 159/72 98 06/16/18 13:51 06/16/18 18:30 06/16/18 18:30 06/16/18 18:30 06/16/18 18:30 General appearance: Present: mild distress - EENT Eyes: Present: PERRL ENT: hearing intact, clear oral mucosa - Neck Neck: Present: supple, normal ROM - Respiratory Respiratory effort: normal Respiratory: bilateral: CTA - Cardiovascular Heart Sounds: Present: S1 & S2. Absent: rub, click - Extremities Extremities: pulses symmetrical, No edema Peripheral Pulses: within normal limits - Abdominal General gastrointestinal: Present: soft, non-tender, non-distended, normal bowel sounds Female genitourinary: Present: normal - Integumentary Integumentary: Present: clear, warm, dry - Musculoskeletal Musculoskeletal: gait normal, strength equal bilaterally - Psychiatric Psychiatric: appropriate mood/affect, intact judgment & insight - Neurologic Neurologic: CNII-XII intact, moves all extremities Results - Labs CBC & Chem 7: 18 16:58 18 16:58 Labs: Abnormal lab results 18 18 Range/Units 16:58 16:58 RBC 5.08 H (3.65-5.03) M/mm3 Hgb 14.6 H (10.1-14.3) gm/dl Hct 44.0 H (30.3-42.9) % Lymph % (Auto) 38.5 H (13.4-35.0) % [place] % (Auto) 7.6 H (0.0-7.3) % Eos % (Auto) 6.6 H (0.0-4.3) % Creatinine 0.5 L (0.7-1.2) mg/dL Assessment and Plan - Patient Problems (1) CVA (cerebral vascular accident) Current Visit: Yes Status: Suspected Qualifiers: Precerebral and cerebral artery: posterior cerebral artery Plan to address problem: Admit to telemetry: Stroke protocol, CT Head, CTA Brain, Carotid Doppler, Echo, Antiplatelet therpay, lipid panel, statin therapy PT/OT/ Speech Therapy, Neuro checks (2) Obesity (BMI 30.0-34.9) Current Visit: Yes Status: Acute Plan to address problem: Balanced diet, increased physical activity at discharge (3) Hypertension Current Visit: Yes Status: Acute Qualifiers: Hypertension type: essential hypertension Qualified Code(s): I10 - Essential (primary) hypertension Plan to address problem: Permissive hypertension overnight, monitor bp q shift, (4) DVT prophylaxis Current Visit: Yes Status: Acute Plan to address problem: SCD to BLE while in bed.
[2018-06-16] MEDS ORDERED: TYLENOL PO PRN (20:16)
--- NOTE | 2018-06-16 20:59 | Cat Scan Report ---
FINAL REPORT EXAM: CT ANGIO HEAD HISTORY: dizzy, weakness TECHNIQUE: Spiral CTA of brain after the uneventful administration of IV contrast. Multiplanar reformations. 3D image post-procesessing was performed on an independent work station. 150 mL Omnipaque IV. PRIORS: Noncontrast CT brain earlier on same date. FINDINGS: Postsurgical change of bifrontal craniotomies and aneurysmal clips again noted in the left supraclinoid and right sylvian fissure regions. A1 segment of left DAVID not visualized, which may be congenital versus acquired. Small, probable saccular aneurysmal dilatation in the vicinity of A-comm artery measuring approximately 4.5 x 3 mm in maximal cross-sectional diameter (axial sequence). Otherwise, normal enhancement of the basilar and bilateral internal carotid arteries and their main intracranial branches. No other abnormal aneurysmal dilatation, significant stenosis or apparent occlusion. No parenchymal mass, hemorrhage, midline shift or hydrocephalus. No evidence of acute cortical infarct. No abnormal extra-axial fluid or air collections. No pathologic enhancement. Remainder of osseous calvarium grossly intact. IMPRESSION: 1. 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 2. No other acute intracranial findings. Dr. Haney discussed results with Dr. Galvez on 16 June 2018 at approximately 2052 hours EST.
[2018-06-16 21:23] LABS: Bacteria,Urine 3+ /HPF (Negative); Bilirubin,Urine NEG (Negative); Blood,Urine SM (Negative); Color,Urine Yellow (Yellow); Mucus,Urine FEW /HPF; Protein,Urine <15 mg/dL mg/dL (Negative); Urobilinogen,Urine < 2.0 mg/dL (<2.0)
[2018-06-16] MEDS ORDERED: PEPCID ONE (21:55)
[2018-06-16] MEDS: PEPCID PO SCH ×2 (21:56→22:57)
[2018-06-16] MEDS: TYLENOL PO PRN (23:52)
[2018-06-17] MEDS: APRESOLINE IV PRN ×2 (07:12→17:04)
[2018-06-17] MEDS: ULTRAM PO PRN ×2 (07:16→13:19)
--- NOTE | 2018-06-17 08:47 | Progress Note ---
Assessment and Plan Assessment and plan: Patient is a 73 yo woman with a history of Diverticulitis and hypertension, ICH s/p clipping who pw headache, dizzness, near syncope 1 day prior to arrival * CT head wo contrast IMPRESSION: No acute CVA, intracranial bleed, or brain mass, Findings suggest prior bilateral aneurysm clipping * CTA neck IMPRESSION: 1. Less than 50% carotid stenosis by NASCET criteria. * CTA head IMPRESSION: 1. 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 2. No other acute intracranial findings. Dr. Haney discussed results with Dr. Galvez on 16 June 2018 at approximately 2052 hours EST. -Intracranial Aneursym with suspect CVA acute: held ASA for now to workup ICH, continue statin, I consulted and discussed with Neurologist, Dr. Frazier for management options -Accelerated Hypertension with urgency: treat with iv hydralazine prn History Interval history: Patient was seen and examined. Follow-up on current diagnosis headaches, still present. Overnight uneventful. Patient denies any chest pain, shortness breath. Imaging, nursing note, chart, labs and old chart reviewed. Discussed with patient. Hospitalist Physical - Physical exam Narrative exam: GEN: WDWN, NAD, Awake, Alert, Orientated HEENT: NCAT, EOMI, PERRL, OP Clear NECK: supple, no adenopathy, no thyromegaly, no JVD CVS/HEART: RRR, normal S1S2, pulses present bilaterally CHEST/LUNGS: CTA B, Symmetrical chest expansion, good air entry bilaterally GI/Abdomen: soft, NTND, good bowel sounds, no guarding or rebound /Bladder: no suprapubic tenderness, no CVA or paraspinal tenderness EXT/Skin: no c/c/e, no obvious rash MSK: FROM x 4 Neuro: CN 2-12 grossly intact, no new focal deficits Psych: calm - Constitutional Vitals: Temp Pulse Resp BP Pulse Ox 98.2 F 60 18 181/76 98 06/17/18 05:54 06/17/18 05:54 06/17/18 05:54 06/17/18 07:12 06/17/18 05:54 General appearance: Absent: mild distress Results - Labs CBC & Chem 7: 06/16/18 16:58 06/16/18 16:58 Labs: Laboratory Last Values WBC 5.7 K/mm3 (4.5-11.0) 06/16/18 16:58 RBC 5.08 M/mm3 (3.65-5.03) H 06/16/18 16:58 Hgb 14.6 gm/dl (10.1-14.3) H 06/16/18 16:58 Hct 44.0 % (30.3-42.9) H 06/16/18 16:58 MCV 87 fl (79-97) 06/16/18 16:58 MCH 29 pg (28-32) 06/16/18 16:58 MCHC 33 % (30-34) 06/16/18 16:58 RDW 14.6 % (13.2-15.2) 06/16/18 16:58 Plt Count 208 K/mm3 (140-440) 06/16/18 16:58 Lymph % (Auto) 38.5 % (13.4-35.0) H 06/16/18 16:58 [place] % (Auto) 7.6 % (0.0-7.3) H 06/16/18 16:58 Eos % (Auto) 6.6 % (0.0-4.3) H 06/16/18 16:58 Baso % (Auto) 1.2 % (0.0-1.8) 06/16/18 16:58 Lymph # 2.2 K/mm3 (1.2-5.4) 06/16/18 16:58 [place] # 0.4 K/mm3 (0.0-0.8) 06/16/18 16:58 Eos # 0.4 K/mm3 (0.0-0.4) 06/16/18 16:58 Baso # 0.1 K/mm3 (0.0-0.1) 06/16/18 16:58 Seg Neutrophils % 46.1 % (40.0-70.0) 06/16/18 16:58 Seg Neutrophils # 2.6 K/mm3 (1.8-7.7) 06/16/18 16:58 PT 12.7 Sec. (12.2-14.9) 06/16/18 16:58 INR 0.91 (0.87-1.13) 06/16/18 16:58 APTT 26.9 Sec. (24.2-36.6) 06/16/18 16:58 Thrombin Time 16.1 Sec. (15.1-19.6) 06/16/18 16:58 Sodium 139 mmol/L (137-145) 06/16/18 16:58 Potassium 3.9 mmol/L (3.6-5.0) 06/16/18 16:58 Chloride 99.7 mmol/L (98-107) 06/16/18 16:58 Carbon Dioxide 30 mmol/L (22-30) 06/16/18 16:58 Anion Gap 13 mmol/L 06/16/18 16:58 BUN 12 mg/dL (7-17) 06/16/18 16:58 Creatinine 0.5 mg/dL (0.7-1.2) L 06/16/18 16:58 Estimated GFR > 60 ml/min 06/16/18 16:58 BUN/Creatinine Ratio 24 % 06/16/18 16:58 Glucose 82 mg/dL (65-100) 06/16/18 16:58 Calcium 10.2 mg/dL (8.4-10.2) 06/16/18 16:58 Total Creatine Kinase 82 units/L (30-135) 06/16/18 16:58 CK-MB (CK-2) 1.3 ng/mL (0.0-4.0) 06/16/18 16:58 CK-MB (CK-2) Rel Index 1.5 (0-4) 06/16/18 16:58 Troponin T < 0.010 ng/mL (0.00-0.029) 06/16/18 16:58 Urine Color Yellow (Yellow) 06/16/18 21:00 Urine Turbidity Cloudy (Clear) 06/16/18 21:00 Urine pH 6.0 (5.0-7.0) 06/16/18 21:00 Ur Specific [place] 1.008 (1.003-1.030) 06/16/18 21:00 Urine Protein <15 mg/dl mg/dL (Negative) 06/16/18 21:00 Urine Glucose (UA) Neg mg/dL (Negative) 06/16/18 21:00 Urine Ketones Neg mg/dL (Negative) 06/16/18 21:00 Urine Blood Sm (Negative) 06/16/18 21:00 Urine Nitrite Neg (Negative) 06/16/18 21:00 Urine Bilirubin Neg (Negative) 06/16/18 21:00 Urine Urobilinogen < 2.0 mg/dL (<2.0) 06/16/18 21:00 Ur Leukocyte Esterase Lg (Negative) 06/16/18 21:00 Urine WBC (Auto) 33.0 /HPF (0.0-6.0) H 06/16/18 21:00 Urine RBC (Auto) 15.0 /HPF (0.0-6.0) 06/16/18 21:00 U Epithel Cells (Auto) 6.0 /HPF (0-13.0) 06/16/18 21:00 Urine Bacteria (Auto) 3+ /HPF (Negative) 06/16/18 21:00 Urine Mucus Few /HPF 06/16/18 21:00 Urine Yeast (Budding) 3+ /HPF 06/16/18 21:00
[2018-06-17] MEDS ORDERED: ASPIRIN PO SCH (10:00)
[2018-06-17] MEDS: TYLENOL PO PRN ×2 (11:21→17:02)
[2018-06-17] MEDS: NORVASC PO SCH (11:22)
[2018-06-17] MEDS: PEPCID PO SCH ×2 (11:22→21:45)
[2018-06-17] MEDS: LASIX PO SCH (11:22)
[2018-06-17] MEDS: TOPROL XL PO SCH (11:22)
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
[2018-06-17] MEDS: ULTRAM PO SCH (13:27)
[2018-06-18] MEDS: ULTRAM PO SCH ×5 (02:03→20:05)
[2018-06-18] MEDS: PEPCID PO SCH ×2 (09:50→22:40)
[2018-06-18] MEDS: NORVASC PO SCH (09:50)
[2018-06-18] MEDS: LASIX PO SCH (09:50)
[2018-06-18] MEDS: TOPROL XL PO SCH (09:50)
--- NOTE | 2018-06-18 13:02 | Progress Note ---
Assessment and Plan Assessment and plan: Patient is a 73 yo woman with a history of Diverticulitis and hypertension, ICH s/p clipping who pw headache, dizzness, near syncope 1 day prior to arrival * CT head wo contrast IMPRESSION: No acute CVA, intracranial bleed, or brain mass, Findings suggest prior bilateral aneurysm clipping * CTA neck IMPRESSION: 1. Less than 50% carotid stenosis by NASCET criteria. * CTA head IMPRESSION: 1. 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 2. No other acute intracranial findings. Dr. Haney discussed results with Dr. Galvez on 16 June 2018 at approximately 2052 hours EST. -Intracranial Aneursym with suspect CVA acute: held ASA for now to workup ICH, continue statin, Neurology is following -Left frontal ecchymosis s/p head trauma on Thursday,concussive symptoms? -DVT prophylaxis: scd only until intracranial hemorrhage ruled out. Neurologist, Dr. Frazier ordered urgent LP yesterday but it was not done and the reason was not documented in EMR; so I called and spoke with the Radiologist, Dr. Matthews, he refuses to do the urgent LP because patient was on Aspirin, he wants to wait 7 days and he did not give any other options. I then notified Dr. Frazier who recommends a repeat CT head. History Interval history: Patient was seen and examined. Follow-up on current diagnosis headaches, still present but improved. Overnight uneventful. Patient denies any chest pain, shortness breath. Imaging, nursing note, chart, labs and old chart reviewed. Discussed with patient. Hospitalist Physical - Physical exam Narrative exam: GEN: WDWN, NAD, Awake, Alert, Orientated HEENT: NCAT, EOMI, PERRL, OP Clear NECK: supple, no adenopathy, no thyromegaly, no JVD CVS/HEART: RRR, normal S1S2, pulses present bilaterally CHEST/LUNGS: CTA B, Symmetrical chest expansion, good air entry bilaterally GI/Abdomen: soft, NTND, good bowel sounds, no guarding or rebound /Bladder: no suprapubic tenderness, no CVA or paraspinal tenderness EXT/Skin: no c/c/e, no obvious rash MSK: FROM x 4 Neuro: CN 2-12 grossly intact, no new focal deficits Psych: calm - Constitutional Vitals: Temp Pulse Resp BP Pulse Ox 98.5 F 62 20 172/67 97 06/18/18 09:36 06/18/18 09:50 06/18/18 09:36 06/18/18 09:50 06/18/18 09:36 General appearance: Absent: mild distress Results - Labs CBC & Chem 7: 06/16/18 16:58 06/16/18 16:58 Labs: Laboratory Last Values WBC 5.7 K/mm3 (4.5-11.0) 06/16/18 16:58 RBC 5.08 M/mm3 (3.65-5.03) H 06/16/18 16:58 Hgb 14.6 gm/dl (10.1-14.3) H 06/16/18 16:58 Hct 44.0 % (30.3-42.9) H 06/16/18 16:58 MCV 87 fl (79-97) 06/16/18 16:58 MCH 29 pg (28-32) 06/16/18 16:58 MCHC 33 % (30-34) 06/16/18 16:58 RDW 14.6 % (13.2-15.2) 06/16/18 16:58 Plt Count 208 K/mm3 (140-440) 06/16/18 16:58 Lymph % (Auto) 38.5 % (13.4-35.0) H 06/16/18 16:58 [place] % (Auto) 7.6 % (0.0-7.3) H 06/16/18 16:58 Eos % (Auto) 6.6 % (0.0-4.3) H 06/16/18 16:58 Baso % (Auto) 1.2 % (0.0-1.8) 06/16/18 16:58 Lymph # 2.2 K/mm3 (1.2-5.4) 06/16/18 16:58 [place] # 0.4 K/mm3 (0.0-0.8) 06/16/18 16:58 Eos # 0.4 K/mm3 (0.0-0.4) 06/16/18 16:58 Baso # 0.1 K/mm3 (0.0-0.1) 06/16/18 16:58 Seg Neutrophils % 46.1 % (40.0-70.0) 06/16/18 16:58 Seg Neutrophils # 2.6 K/mm3 (1.8-7.7) 06/16/18 16:58 PT 12.7 Sec. (12.2-14.9) 06/16/18 16:58 INR 0.91 (0.87-1.13) 06/16/18 16:58 APTT 26.9 Sec. (24.2-36.6) 06/16/18 16:58 Thrombin Time 16.1 Sec. (15.1-19.6) 06/16/18 16:58 Sodium 139 mmol/L (137-145) 06/16/18 16:58 Potassium 3.9 mmol/L (3.6-5.0) 06/16/18 16:58 Chloride 99.7 mmol/L (98-107) 06/16/18 16:58 Carbon Dioxide 30 mmol/L (22-30) 06/16/18 16:58 Anion Gap 13 mmol/L 06/16/18 16:58 BUN 12 mg/dL (7-17) 06/16/18 16:58 Creatinine 0.5 mg/dL (0.7-1.2) L 06/16/18 16:58 Estimated GFR > 60 ml/min 06/16/18 16:58 BUN/Creatinine Ratio 24 % 06/16/18 16:58 Glucose 82 mg/dL (65-100) 06/16/18 16:58 POC Glucose 109 (70-105) H 06/17/18 22:29 Calcium 10.2 mg/dL (8.4-10.2) 06/16/18 16:58 Total Creatine Kinase 82 units/L (30-135) 06/16/18 16:58 CK-MB (CK-2) 1.3 ng/mL (0.0-4.0) 06/16/18 16:58 CK-MB (CK-2) Rel Index 1.5 (0-4) 06/16/18 16:58 Troponin T < 0.010 ng/mL (0.00-0.029) 06/16/18 16:58 Urine Color Yellow (Yellow) 06/16/18 21:00 Urine Turbidity Cloudy (Clear) 06/16/18 21:00 Urine pH 6.0 (5.0-7.0) 06/16/18 21:00 Ur Specific [place] 1.008 (1.003-1.030) 06/16/18 21:00 Urine Protein <15 mg/dl mg/dL (Negative) 06/16/18 21:00 Urine Glucose (UA) Neg mg/dL (Negative) 06/16/18 21:00 Urine Ketones Neg mg/dL (Negative) 06/16/18 21:00 Urine Blood Sm (Negative) 06/16/18 21:00 Urine Nitrite Neg (Negative) 06/16/18 21:00 Urine Bilirubin Neg (Negative) 06/16/18 21:00 Urine Urobilinogen < 2.0 mg/dL (<2.0) 06/16/18 21:00 Ur Leukocyte Esterase Lg (Negative) 06/16/18 21:00 Urine WBC (Auto) 33.0 /HPF (0.0-6.0) H 06/16/18 21:00 Urine RBC (Auto) 15.0 /HPF (0.0-6.0) 06/16/18 21:00 U Epithel Cells (Auto) 6.0 /HPF (0-13.0) 06/16/18 21:00 Urine Bacteria (Auto) 3+ /HPF (Negative) 06/16/18 21:00 Urine Mucus Few /HPF 06/16/18 21:00 Urine Yeast (Budding) 3+ /HPF 06/16/18 21:00
[2018-06-18 14:42] LABS: Chol/HDL Ratio 2.56 %
[2018-06-18] MEDS: LEVAQUIN PO SCH (14:55)
[2018-06-18] MEDS ORDERED: TUMS PO ONE (19:00)
[2018-06-19] MEDS: ULTRAM PO SCH ×4 (08:28→20:00)
[2018-06-19] MEDS: NORVASC PO SCH (10:24)
[2018-06-19] MEDS: TOPROL XL PO SCH (10:24)
[2018-06-19] MEDS: PEPCID PO SCH ×2 (10:24→22:14)
[2018-06-19] MEDS: LEVAQUIN PO SCH (10:24)
[2018-06-19] MEDS: LASIX PO SCH (10:24)
--- NOTE | 2018-06-19 14:12 | Progress Note ---
Assessment and Plan Assessment and plan: Patient is a 73 yo woman with a history of Diverticulitis and hypertension, ICH s/p clipping who pw headache, dizzness, near syncope 1 day prior to arrival * CT head wo contrast IMPRESSION: No acute CVA, intracranial bleed, or brain mass, Findings suggest prior bilateral aneurysm clipping * CTA neck IMPRESSION: 1. Less than 50% carotid stenosis by NASCET criteria. * CTA head IMPRESSION: 1. 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 2. No other acute intracranial findings. Dr. Haney discussed results with Dr. Galvez on 16 June 2018 at approximately 2052 hours EST. -Intracranial Aneursym with suspect CVA acute: held ASA for now to workup ICH, continue statin, Neurology is following -Headaches, still present: treat symptomatically, gait test and unremarkable -Left frontal ecchymosis s/p head trauma on Thursday,concussive symptoms? -UTI, poa: urine culture uncollected, start Levaquin x 5 days for uncomplicated uti, I called and spoke the nurse, Sam==>collected and now pending -DVT prophylaxis: scd only until intracranial hemorrhage ruled out. Neurologist, Dr. Frazier ordered urgent LP yesterday but it was not done and the reason was not documented in EMR; so I called and spoke with the Radiologist, Dr. Matthews, he refuses to do the urgent LP because patient was on Aspirin, he wants to wait 7 days and he did not give any other options. I then notified Dr. Frazier who recommends a repeat CT head. Disposition: continue inpatient care, LP on thursday, repeat CT head today History Interval history: Patient was seen and examined. Follow-up on current diagnosis headaches, still present but improved. Overnight uneventful. Patient denies any chest pain, shortness breath. Imaging, nursing note, chart, labs and old chart reviewed. Discussed with patient. Hospitalist Physical - Physical exam Narrative exam: GEN: WDWN, NAD, Awake, Alert, Orientated HEENT: NCAT, EOMI, PERRL, OP Clear NECK: supple, no adenopathy, no thyromegaly, no JVD CVS/HEART: RRR, normal S1S2, pulses present bilaterally CHEST/LUNGS: CTA B, Symmetrical chest expansion, good air entry bilaterally GI/Abdomen: soft, NTND, good bowel sounds, no guarding or rebound /Bladder: no suprapubic tenderness, no CVA or paraspinal tenderness EXT/Skin: no c/c/e, no obvious rash MSK: FROM x 4 Neuro: CN 2-12 grossly intact, no new focal deficits Psych: calm - Constitutional Vitals: Temp Pulse Resp BP Pulse Ox 98.8 F 66 18 143/77 98 06/19/18 07:50 06/19/18 07:50 06/19/18 07:50 06/19/18 07:50 06/19/18 07:50 General appearance: Absent: mild distress Results - Labs CBC & Chem 7: 06/16/18 16:58 06/16/18 16:58 Labs: Laboratory Last Values WBC 5.7 K/mm3 (4.5-11.0) 06/16/18 16:58 RBC 5.08 M/mm3 (3.65-5.03) H 06/16/18 16:58 Hgb 14.6 gm/dl (10.1-14.3) H 06/16/18 16:58 Hct 44.0 % (30.3-42.9) H 06/16/18 16:58 MCV 87 fl (79-97) 06/16/18 16:58 MCH 29 pg (28-32) 06/16/18 16:58 MCHC 33 % (30-34) 06/16/18 16:58 RDW 14.6 % (13.2-15.2) 06/16/18 16:58 Plt Count 208 K/mm3 (140-440) 06/16/18 16:58 Lymph % (Auto) 38.5 % (13.4-35.0) H 06/16/18 16:58 [place] % (Auto) 7.6 % (0.0-7.3) H 06/16/18 16:58 Eos % (Auto) 6.6 % (0.0-4.3) H 06/16/18 16:58 Baso % (Auto) 1.2 % (0.0-1.8) 06/16/18 16:58 Lymph # 2.2 K/mm3 (1.2-5.4) 06/16/18 16:58 [place] # 0.4 K/mm3 (0.0-0.8) 06/16/18 16:58 Eos # 0.4 K/mm3 (0.0-0.4) 06/16/18 16:58 Baso # 0.1 K/mm3 (0.0-0.1) 06/16/18 16:58 Seg Neutrophils % 46.1 % (40.0-70.0) 06/16/18 16:58 Seg Neutrophils # 2.6 K/mm3 (1.8-7.7) 06/16/18 16:58 PT 12.7 Sec. (12.2-14.9) 06/16/18 16:58 INR 0.91 (0.87-1.13) 06/16/18 16:58 APTT 26.9 Sec. (24.2-36.6) 06/16/18 16:58 Thrombin Time 16.1 Sec. (15.1-19.6) 06/16/18 16:58 Sodium 139 mmol/L (137-145) 06/16/18 16:58 Potassium 3.9 mmol/L (3.6-5.0) 06/16/18 16:58 Chloride 99.7 mmol/L (98-107) 06/16/18 16:58 Carbon Dioxide 30 mmol/L (22-30) 06/16/18 16:58 Anion Gap 13 mmol/L 06/16/18 16:58 BUN 12 mg/dL (7-17) 06/16/18 16:58 Creatinine 0.5 mg/dL (0.7-1.2) L 06/16/18 16:58 Estimated GFR > 60 ml/min 06/16/18 16:58 BUN/Creatinine Ratio 24 % 06/16/18 16:58 Glucose 82 mg/dL (65-100) 06/16/18 16:58 POC Glucose 115 (70-105) H 06/18/18 12:52 Calcium 10.2 mg/dL (8.4-10.2) 06/16/18 16:58 Total Creatine Kinase 82 units/L (30-135) 06/16/18 16:58 CK-MB (CK-2) 1.3 ng/mL (0.0-4.0) 06/16/18 16:58 CK-MB (CK-2) Rel Index 1.5 (0-4) 06/16/18 16:58 Troponin T < 0.010 ng/mL (0.00-0.029) 06/16/18 16:58 Triglycerides 125 mg/dL (2-149) 06/18/18 14:00 Cholesterol 131 mg/dL (50-199) 06/18/18 14:00 LDL Cholesterol Direct 73 mg/dL (50-130) 06/18/18 14:00 HDL Cholesterol 51 mg/dL (40-59) 06/18/18 14:00 Cholesterol/HDL Ratio 2.56 % 06/18/18 14:00 Urine Color Yellow (Yellow) 06/16/18 21:00 Urine Turbidity Cloudy (Clear) 06/16/18 21:00 Urine pH 6.0 (5.0-7.0) 06/16/18 21:00 Ur Specific [place] 1.008 (1.003-1.030) 06/16/18 21:00 Urine Protein <15 mg/dl mg/dL (Negative) 06/16/18 21:00 Urine Glucose (UA) Neg mg/dL (Negative) 06/16/18 21:00 Urine Ketones Neg mg/dL (Negative) 06/16/18 21:00 Urine Blood Sm (Negative) 06/16/18 21:00 Urine Nitrite Neg (Negative) 06/16/18 21:00 Urine Bilirubin Neg (Negative) 06/16/18 21:00 Urine Urobilinogen < 2.0 mg/dL (<2.0) 06/16/18 21:00 Ur Leukocyte Esterase Lg (Negative) 06/16/18 21:00 Urine WBC (Auto) 33.0 /HPF (0.0-6.0) H 06/16/18 21:00 Urine RBC (Auto) 15.0 /HPF (0.0-6.0) 06/16/18 21:00 U Epithel Cells (Auto) 6.0 /HPF (0-13.0) 06/16/18 21:00 Urine Bacteria (Auto) 3+ /HPF (Negative) 06/16/18 21:00 Urine Mucus Few /HPF 06/16/18 21:00 Urine Yeast (Budding) 3+ /HPF 06/16/18 21:00
--- NOTE | 2018-06-19 15:10 | Cat Scan Report ---
FINAL REPORT EXAM: CT HEAD/BRAIN WO CON HISTORY: cva TECHNIQUE: CT of the head was performed. No intravenous contrast was administered. PRIORS: None. FINDINGS: Old postsurgical findings are stable. There is no evidence of intracranial hemorrhage. There is no edema, mass effect or midline shift. There are no abnormal extra-axial fluid collections. The ventricles are appropriate for brain volume. There is no skull fracture seen. The visualized aspects of the sinuses are clear. IMPRESSION: There is no acute intracranial abnormality identified.
[2018-06-20] MEDS: ULTRAM PO SCH ×4 (01:00→19:39)
[2018-06-20] MEDS: TOPROL XL PO SCH (10:59)
[2018-06-20] MEDS: NORVASC PO SCH (10:59)
[2018-06-20] MEDS: LEVAQUIN PO SCH (10:59)
[2018-06-20] MEDS: PEPCID PO SCH ×2 (10:59→22:12)
[2018-06-20] MEDS: LASIX PO SCH (10:59)
--- NOTE | 2018-06-21 09:19 | Query- General ---
Dear Date:__06/21/2018 Embedded Firmware Engineer/CDS:__Yisel/Robert Phone#:__[phone] Exercise your independent professional judgment when responding to this query. Questions asked do not imply a particular answer is desired or expected. We greatly appreciate your clarification on this issue. Clinical Documentation States: 73 Year old female was admitted on 06/16/2018 for an acute onset of dizziness, blurred vision, weakness, and inability to speak. Pt also states that she felt like she was going to pass out. Pt symptoms resolved after "some time", but generalized weakness persisted. The H&P stated "- Patient Problems (1) CVA (cerebral vascular accident) Current Visit: Yes Status: Suspected Qualifiers: Precerebral and cerebral artery: posterior cerebral artery Plan to address problem: Admit to telemetry: Stroke protocol, CT Head, CTA Brain, Carotid Doppler, Echo, Antiplatelet therpay, lipid panel, statin therapy PT/OT/ Speech Therapy, Neuro checks." The Hospitalist (Dr. Vivas) progress note on 06/20/2018 stated "CT head wo contrast IMPRESSION: No acute CVA, intracranial bleed, or brain mass , Findings suggest prior bilateral aneurysm clipping * CTA neck IMPRESSION: 1. Less than 50% carotid stenosis by NASCET criteria. * CTA head IMPRESSION: 1. 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 2. No other acute intracranial findings. Dr. Haney discussed results with Dr. Galvez on 16 June 2018 at approximately 2052 hours EST. -Intracranial Aneursym with suspect CVA acute: held ASA for now to workup ICH, continue statin, Neurology is following." Given the above clinical scenario can you please provide an appropriate diagnosis based on your knowledge of the patient: PHYSICIAN RESPONSE: [ ] CVA Ruled In [ x ] CVA Ruled Out [ ] Other (Please specify): Present on Admission: [x ] Yes (Y) [ ] Clinically undeterminable (W) [ ]No(N) Please also document response in your Progress Notes and/or Discharge Summary and indicate if the condition was present on admission. MIRIAN
[2018-06-21] MEDS: ULTRAM PO SCH (10:21)
[2018-06-21] MEDS: NORVASC PO SCH (10:25)
[2018-06-21] MEDS: LEVAQUIN PO SCH (10:25)
[2018-06-21] MEDS: TOPROL XL PO SCH (10:25)
[2018-06-21] MEDS: LASIX PO SCH (10:25)
[2018-06-21] MEDS: PEPCID PO SCH (10:25)
--- NOTE | 2018-06-21 12:16 | Discharge Summary ---
Providers - Providers Date of Admission: 06/16/18 20:13 Date of discharge: 06/21/18 Attending physician: FANG LUNA 06/16/18 20:13 Occupational Therapy Evaluate and Treat [CONS] Routine Comment: Reason For Exam: Neuro deficits Physical Therapy Evaluation and Treat [CONS] Routine Comment: Reason For Exam: Neuro deficits 06/16/18 20:14 Speech Therapy Evaluation and Treat [CONS] Routine Reason For Exam: swallow eval 06/17/18 08:48 Consult to Physician [CONS] Routine Comment: Consulting Provider: LUBNA FRAZIER Physician Instructions: Reason For Exam: Intracranial aneurysm Primary care physician: [employer]TER Hospitalization Condition: Stable Hospital course: Patient is a 73 yo woman with a history of Diverticulitis and hypertension, ICH s/p clipping who pw headache, dizzness, near syncope 1 day prior to arrival * CT head wo contrast IMPRESSION: No acute CVA, intracranial bleed, or brain mass, Findings suggest prior bilateral aneurysm clipping * CTA neck IMPRESSION: 1. Less than 50% carotid stenosis by NASCET criteria. * CTA head IMPRESSION: 1. 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 2. No other acute intracranial findings. Dr. Haney discussed results with Dr. Galvez on 16 June 2018 at approximately 2052 hours EST. -Intracranial Aneursym with suspect CVA acute ruled out, most likely concussion syndrome -Headaches, still present: treat symptomatically, gait test and unremarkable -Left frontal ecchymosis s/p head trauma on Thursday,concussive symptoms -UTI, poa: urine culture uncollected, start Levaquin x 5 days for uncomplicated uti, I called and spoke the nurse, Sam==>collected and now pending -DVT prophylaxis: scd only until intracranial hemorrhage ruled out. Neurologist, Dr. Frazier ordered urgent LP yesterday but it was not done and the reason was not documented in EMR; so I called and spoke with the Radiologist, Dr. Matthews, he refuses to do the urgent LP because patient was on Aspirin, he wants to wait 7 days and he did not give any other options. I then notified Dr. Frazier who recommends a repeat CT head. Disposition: will discharge, repeat CT head negative, and asymptomatic, no need for LP to rule out ICH Disposition: TO HOME OR SELFCARE Time spent for discharge: 33 minutes Core Measure Documentation - Palliative Care Palliative Care/ Comfort Measures: Not Applicable - Core Measures Any of the following diagnoses?: none - VTE Discharge Requirements Deep Vein Thrombosis/Pulmonary Embolism Present on Admission: No Has pt received <5 days of overlap therapy or INR<2.0: No Anticoagulant overlap therapy prescribed at discharge: No Contraindication No Overlap Therapy order at DC: Not Indicated Exam - Physical Exam Narrative exam: GEN: WDWN, NAD, Awake, Alert, Orientated x 3 HEENT: NCAT, EOMI, PERRL, OP Clear NECK: supple, no adenopathy, no thyromegaly, no JVD CVS/HEART: RRR, normal S1S2, pulses present bilaterally CHEST/LUNGS: CTA B, Symmetrical chest expansion, good air entry bilaterally GI/Abdomen: soft, NTND, good bowel sounds, no guarding or rebound /Bladder: no suprapubic tenderness, no CVA or paraspinal tenderness EXT/Skin: no c/c/e, no obvious rash MSK: FROM x 4 Neuro: CN 2-12 grossly intact, no new focal deficits, gait normal Psych: calm - Constitutional Vitals: Temp Pulse Resp BP Pulse Ox 98.2 F 58 L 16 143/67 100 06/21/18 08:12 06/21/18 08:12 06/21/18 08:12 06/21/18 08:12 06/21/18 08:12 Plan Activity: up only with assistance, fall precautions, other (no strenous activity ) Diet: low salt Follow up with: PRIMARY CAREMD [Primary Care Provider] - 3-5 Days BRANDON PIERCE MD [Staff Physician] - 7 Days Prescriptions: Amlodipine Besylate [Norvasc] 10 mg PO DAILY #30 tablet Aspirin [Adult Low Dose Aspirin EC] 81 mg PO DAILY #30 tablet. Atorvastatin Calcium [Lipitor] 40 mg PO HS #30 tablet Furosemide [Lasix TAB] 40 mg PO QDAY #30 tablet levoFLOXacin [Levaquin] 750 mg PO QDAY #3 tablet Metoprolol Xl [Metoprolol SUCCINATE ER TAB] 50 mg PO QDAY #30 tablet traMADol [Ultram 50 MG tab] 50 mg PO Q6H PRN #10 tablet PRN Reason: Pain, Moderate (4-6)
[2018-06-21 13:54] VITALS: BP 137/69
== END 2018-06-21 15:35 | disposition home or self-care (01) | DRG 92 ==
LOC: ED 13:47 → 4A 20:13
PROVIDERS: ADMIT Internal Medicine; ATTEND Internal Medicine
DX: I67.1 Cerebral aneurysm, nonruptured (principal); N39.0 Urinary tract infection, site not specified; I16.0 Hypertensive urgency; G43.909 Migraine, unspecified, not intractable, without status migrainosus; E66.9 Obesity, unspecified; M13.812 Other specified arthritis, left shoulder; M13.811 Other specified arthritis, right shoulder; M13.852 Other specified arthritis, left hip; M13.872 Other specified arthritis, left ankle and foot; F07.81 Postconcussional syndrome; S00.83XA Contusion of other part of head, initial encounter; W19.XXXA Unspecified fall, initial encounter; Y93.89 Activity, other specified; Z68.34 Body mass index [BMI] 34.0-34.9, adult; Z82.49 Family history of ischemic heart disease and other diseases of the circulatory system; Z79.899 Other long term (current) drug therapy; Z79.82 Long term (current) use of aspirin; Z80.9 Family history of malignant neoplasm, unspecified; Y92.89 Other specified places as the place of occurrence of the external cause; Y99.8 Other external cause status
CPT/HCPCS: 36415; 70450; 70496; 70498; 80048; 80061; 81001; 82550; 82553; 82962; 84484; 85025; 85610; 85670; 85730; 87086; 93005; 93010; 93306; 95816; 96374; A9270-GY; G8996-GN; G8997-GN; G8998-GN; J0360; J2405; Q9967

== ENCOUNTER 2018-06-23 03:16 | Emergency (ER) | payer MEDICARE ==
[2018-06-23] MEDS ORDERED: ZOFRAN ODT PO ONE (03:58)
[2018-06-23] MEDS ORDERED: ZOFRAN ODT ONE (03:59)
[2018-06-23] MEDS ORDERED: NACL 0.9% 1000 ML 1,000 ML IV ONE ×2 (04:04→06:44)
[2018-06-23 04:19] LABS: Basophils % (Auto) 0.5 % (0.0-1.8); Eosinophils # (Auto) 0.3 K/mm3 (0.0-0.4); Eosinophils % (Auto) 5.1 % (0.0-4.3); Hematocrit 42.5 % (30.3-42.9); Hemoglobin 13.6 gm/dl (10.1-14.3); Lymphocytes # (Auto) 1.6 K/mm3 (1.2-5.4); Lymphocytes % (Auto) 27.4 % (13.4-35.0); Mean Corpuscular HGB Conc 32 % (30-34); Mean Corpuscular Hemoglobin 28 pg (28-32); Mean Corpuscular Volume 89 fl (79-97); Monocytes # (Auto) 0.6 K/mm3 (0.0-0.8); Monocytes % (Auto) 10.7 % (0.0-7.3); Platelet Count 182 K/mm3 (140-440); Red Cell Distribution Width 14.3 % (13.2-15.2)
[2018-06-23 05:18] LABS: BUN/Creatinine Ratio 30; Blood Urea Nitrogen 21 mg/dL (7-17)
[2018-06-23 05:19] LABS: Alanine Aminotransferase 35 units/L (7-56); Albumin 3.9 g/dL (3.9-5); Hemolysis Index 21
[2018-06-23 06:11] LABS: Bacteria,Urine 2+ /HPF (Negative); Bilirubin,Urine NEG (Negative); Blood,Urine NEG (Negative); Color,Urine Yellow (Yellow); Mucus,Urine FEW /HPF; Protein,Urine <15 mg/dL mg/dL (Negative); Urobilinogen,Urine < 2.0 mg/dL (<2.0)
--- NOTE | 2018-06-23 06:18 | Emergency Department Report ---
ED General Adult HPI - General Chief complaint: Abdominal Pain Stated complaint: ABD PAIN Time Seen by Provider: 06/23/18 06:16 Source: patient Mode of arrival: Ambulatory Limitations: No Limitations - History of Present Illness Initial comments: 73-year-old female with recurrent left lower quadrant pain. Triage note states she noticed some blood in her stool. However, the patient herself denies this. She has ongoing discomfort in her left lower quadrant. She she did not take her temperature at home and feels as though she might of had a fever. She denies nausea or vomiting. The pain is moderate for the last several hours and does not radiate. She states that is similar to previous visit to this facility. Her previous consultation in February [address] Serna the hull and deck remover: Assessment and Plan - Patient Problems (1) Diverticulitis Current Visit: Yes Status: Acute Plan to address problem: Mild diverticulitis with LLQ tenderness and an abnormal CT scan revealing pericolonic and peridiverticular inflammation. Ischemic colitis is also possible. Clinically she is doing well with improvement of pain and absence of fever or leukocytosis. Will advance diet to full liquids today. Needs outpatient colonoscopy in about 6-8 weeks. Colonoscopy is relatively contraindicated at this time. Home 1-2 days if doing well. She states that she has had a colonoscopy with in Dr. Serna office a few weeks ago. This was reported to her as being normal. She specifically states that no polyps were found. In addition the patient was discharged here on 06/21/2018 with the following discharge summary and on related admission: Hospitalization Condition: Stable Hospital course: Patient is a 73 yo woman with a history of Diverticulitis and hypertension, ICH s/p clipping who pw headache, dizzness, near syncope 1 day prior to arrival CT head wo contrast IMPRESSION: No acute CVA, intracranial bleed, or brain mass, Findings suggest prior bilateral aneurysm clipping CTA neck IMPRESSION: 1. Less than 50% carotid stenosis by NASCET criteria. CTA head IMPRESSION: 1. 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 2. No other acute intracranial findings. Dr. Haney discussed results with Dr. Galvez on 16 June 2018 at approximately 2052 hours EST. -Intracranial Aneursym with suspect CVA acute ruled out, most likely concussion syndrome -Headaches, still present: treat symptomatically, gait test and unremarkable -Left frontal ecchymosis s/p head trauma on Thursday,concussive symptoms -UTI, poa: urine culture uncollected, start Levaquin x 5 days for uncomplicated uti, I called and spoke the nurse, Sam==>collected and now pending -DVT prophylaxis: scd only until intracranial hemorrhage ruled out. Neurologist, Dr. Frazier ordered urgent LP yesterday but it was not done and the reason was not documented in EMR; so I called and spoke with the Radiologist, Dr. Matthews, he refuses to do the urgent LP because patient was on Aspirin, he wants to wait 7 days and he did not give any other options. I then notified Dr. Frazier who recommends a repeat CT head. -: Gradual, hour(s) Location: abdomen, left Radiation: non-radiation Quality: aching Consistency: constant Improves with: none Worsens with: none Associated Symptoms: denies other symptoms (may have had a fever (subjective)) - Related Data Previous Rx's Medication Instructions Recorded Last Taken Type Acetaminophen [Acetaminophen TAB] 650 mg PO Q4H PRN #30 tablet 02/23/18 Unknown Rx Famotidine [Pepcid] 20 mg PO BID #30 tablet 02/23/18 06/16/18 Rx Acetaminophen [Acetaminophen TAB] 650 mg PO Q4H PRN #15 tablet 06/21/18 Unknown Rx Amlodipine Besylate [Norvasc] 10 mg PO DAILY #30 tablet 06/21/18 Unknown Rx Aspirin [Adult Low Dose Aspirin EC] 81 mg PO DAILY #30 tablet. 06/21/18 Unknown Rx Atorvastatin Calcium [Lipitor] 40 mg PO HS #30 tablet 06/21/18 Unknown Rx Furosemide [Lasix TAB] 40 mg PO QDAY #30 tablet 06/21/18 Unknown Rx Metoprolol Xl [Metoprolol 50 mg PO QDAY #30 tablet 06/21/18 Unknown Rx SUCCINATE ER TAB] levoFLOXacin [Levaquin] 750 mg PO QDAY #3 tablet 06/21/18 Unknown Rx traMADol [Ultram 50 MG tab] 50 mg PO Q6H PRN #10 tablet 06/21/18 Unknown Rx Tramadol HCl [Ultram] 50 mg PO Q6H PRN #14 tablet 06/23/18 Unknown Rx levoFLOXacin [Levaquin TAB] 500 mg PO QDAY #7 tablet 06/23/18 Unknown Rx Allergies Allergy/AdvReac Type Severity Reaction Status Date / Time No Known Allergies Allergy Verified 06/16/18 13:51 ED Review of Systems ROS: Stated complaint: ABD PAIN Other details as noted in HPI Constitutional: fever. denies: chills Eyes: denies: eye pain, eye discharge, vision change ENT: denies: ear pain, throat pain Respiratory: denies: cough, shortness of breath, wheezing Cardiovascular: denies: chest pain, palpitations Endocrine: no symptoms reported Gastrointestinal: abdominal pain. denies: nausea, diarrhea Genitourinary: denies: urgency, dysuria, discharge Musculoskeletal: denies: back pain, joint swelling, arthralgia Skin: denies: rash, lesions Neurological: denies: headache, weakness, paresthesias Psychiatric: denies: anxiety, depression Hematological/Lymphatic: denies: easy bleeding, easy bruising ED Past Medical Hx - Past Medical History Previous Medical History?: Yes Hx Hypertension: Yes Hx Arthritis: Yes (bilateral shoulders/back/left hip/bilateral legs/left ankle) Hx Headaches / Migraines: Yes Additional medical history: "I have a hole in my colon" - Surgical History Past Surgical History?: Yes Hx Breast Surgery: Yes Additional Surgical History: 3 HEAD ANEURYSM CLIPPINGS - Social History Smoking Status: Never Smoker Substance Use Type: None - Medications Home Medications: Home Medications Medication Instructions Recorded Confirmed Last Taken Type Acetaminophen [Acetaminophen TAB] 650 mg PO Q4H PRN #30 tablet 02/23/18 Unknown Rx Famotidine [Pepcid] 20 mg PO BID #30 tablet 02/23/18 06/16/18 06/16/18 Rx Acetaminophen [Acetaminophen TAB] 650 mg PO Q4H PRN #15 tablet 06/21/18 Unknown Rx Amlodipine Besylate [Norvasc] 10 mg PO DAILY #30 tablet 06/21/18 Unknown Rx Aspirin [Adult Low Dose Aspirin EC] 81 mg PO DAILY #30 tablet 06/21/18 Unknown Rx Atorvastatin Calcium [Lipitor] 40 mg PO HS #30 tablet 06/21/18 Unknown Rx Furosemide [Lasix TAB] 40 mg PO QDAY #30 tablet 06/21/18 Unknown Rx Metoprolol Xl [Metoprolol 50 mg PO QDAY #30 tablet 06/21/18 Unknown Rx SUCCINATE ER TAB] levoFLOXacin [Levaquin] 750 mg PO QDAY #3 tablet 06/21/18 Unknown Rx traMADol [Ultram 50 MG tab] 50 mg PO Q6H PRN #10 tablet 06/21/18 Unknown Rx Tramadol HCl [Ultram] 50 mg PO Q6H PRN #14 tablet 06/23/18 Unknown Rx levoFLOXacin [Levaquin TAB] 500 mg PO QDAY #7 tablet 06/23/18 Unknown Rx ED Physical Exam - General Limitations: No Limitations General appearance: alert, in no apparent distress - Head Head exam: Present: atraumatic, normocephalic - Eye Eye exam: Present: normal appearance - ENT ENT exam: Present: mucous membranes moist - Neck Neck exam: Present: normal inspection. Absent: tenderness, meningismus - Respiratory Respiratory exam: Present: normal lung sounds bilaterally. Absent: respiratory distress - Cardiovascular Cardiovascular Exam: Present: regular rate, normal rhythm. Absent: systolic murmur, diastolic murmur, rubs, gallop - GI/Abdominal GI/Abdominal exam: Present: soft, tenderness (left lower quadrant), normal bowel sounds. Absent: distended, guarding, rebound, rigid, organomegaly, mass, bruit, pulsatile mass, hernia - Extremities Exam Extremities exam: Present: normal inspection. Absent: calf tenderness - Back Exam Back exam: Present: normal inspection - Neurological Exam Neurological exam: Present: alert, oriented X3, CN II-XII intact. Absent: motor sensory deficit - Psychiatric Psychiatric exam: Present: normal affect, normal mood - Skin Skin exam: Present: warm, dry, intact, normal color. Absent: rash ED Course Vital Signs 06/23/18 06/23/18 06/23/18 03:53 05:03 05:15 Temperature 98.2 F Pulse Rate 65 62 Respiratory 18 20 Rate Blood Pressure 124/66 133/64 O2 Sat by Pulse 99 97 97 Oximetry 06/23/18 06/23/18 06/23/18 05:30 05:45 06:00 Temperature Pulse Rate 66 63 64 Respiratory 22 18 17 Rate Blood Pressure 133/64 139/60 133/57 O2 Sat by Pulse 94 99 99 Oximetry 06/23/18 06/23/18 06/23/18 06:15 06:30 06:45 Temperature Pulse Rate 65 66 74 Respiratory 20 20 20 Rate Blood Pressure 139/60 134/56 149/68 O2 Sat by Pulse 95 97 100 Oximetry 06/23/18 06/23/18 06/23/18 07:00 07:15 08:04 Temperature Pulse Rate 71 67 Respiratory 17 16 16 Rate Blood Pressure 132/75 137/57 O2 Sat by Pulse 99 97 97 Oximetry 06/23/18 08:22 Temperature Pulse Rate Respiratory 19 Rate Blood Pressure 137/57 O2 Sat by Pulse Oximetry - Reevaluation(s) Reevaluation #1: The patient was given Zofran and analgesia/IV fluid. We proceeded with CT examination which is pending. 06/23/18 07:45 Reevaluation #2: Spoke with the patient's family member. She confirmed that the patient periodically complains of abdominal pain like this. Her vital signs are entirely stable her abdomen is soft. There is minimal tenderness only. There is certainly no peritoneal signs. Her workup was negative. He is appropriate for follow-up with her primary care physician and Dr. Serna to hull and deck remover. Return criteria have been discussed with family. 06/23/18 11:16 06/23/18 11:17 Allergies the patient a few days of Levaquin although the CT was not digestive of diverticulitis. ED Medical Decision Making - Lab Data Result diagrams: 06/23/18 04:07 06/23/18 04:07 Laboratory Results - last 24 hr 06/23/18 06/23/18 06/23/18 04:07 04:07 05:07 WBC 6.0 RBC 4.80 Hgb 13.6 Hct 42.5 MCV 89 MCH 28 MCHC 32 RDW 14.3 Plt Count 182 Lymph % (Auto) 27.4 [place] % (Auto) 10.7 H Eos % (Auto) 5.1 H Baso % (Auto) 0.5 Lymph # 1.6 [place] # 0.6 Eos # 0.3 Baso # 0.0 Seg Neutrophils % 56.3 Seg Neutrophils # 3.4 Sodium 139 Potassium 3.8 Chloride 102.8 Carbon Dioxide 24 Anion Gap 16 BUN 21 H Creatinine 0.7 Estimated GFR > 60 BUN/Creatinine Ratio 30 Glucose 98 Calcium 10.0 Total Bilirubin 0.60 AST 29 ALT 35 Alkaline Phosphatase 92 Total Protein 7.0 Albumin 3.9 Albumin/Globulin Ratio 1.3 Urine Color Yellow Urine Turbidity Slightly-cloudy Urine pH 8.0 H Ur Specific [place] 1.011 Urine Protein <15 mg/dl Urine Glucose (UA) Neg Urine Ketones Neg Urine Blood Neg Urine Nitrite Neg Urine Bilirubin Neg Urine Urobilinogen < 2.0 Ur Leukocyte Esterase Lg Urine WBC (Auto) 7.0 H Urine RBC (Auto) 2.0 U Epithel Cells (Auto) 5.0 Urine Bacteria (Auto) 2+ Urine Mucus Few Critical care attestation.: If time is entered above; I have spent that time in minutes in the direct care of this critically ill patient, excluding procedure time. ED Disposition Clinical Impression: Abdominal pain Qualifiers: Abdominal location: left lower quadrant Qualified Code(s): R10.32 - Left lower quadrant pain Diverticulosis Qualifiers: Diverticulosis site: diverticulosis of large intestine Diverticulosis bleeding : diverticulosis without bleeding Qualified Code(s): K57.30 - Diverticulosis of large intestine without perforation or abscess without bleeding Disposition: - TO HOME OR SELFCARE Is pt being admited?: No Does the pt Need Aspirin: No Condition: Stable Instructions: Abdominal Pain (ED), Diverticulosis (ED), Diverticulosis Diet (ED ) Additional Instructions: Return to the emergency department any increased pain. Monitor temperature. Return any fever. Return any vomiting. Return in general if you feel weak or any acute change. Follow-up with Dr. Serna. I am going to give a short course of antibiotic although we did not find a definite infection and something for pain. Prescriptions: levoFLOXacin [Levaquin TAB] 500 mg PO QDAY #7 tablet Tramadol HCl [Ultram] 50 mg PO Q6H PRN #14 tablet PRN Reason: Pain , Severe (7-10) Referrals: CHAPO SERNA MD [Staff Physician] - 3-5 Days PRIMARY CAREMD [Primary Care Provider] - 24 Hours
[2018-06-23] MEDS ORDERED: MORPHINE IV ONE ×2 (06:44→09:46)
[2018-06-23] MEDS ORDERED: ZOFRAN IV ONE (06:47)
[2018-06-23] MEDS ORDERED: ZOSYN/NS 3.375GM/50ML 3.375 GM/50 ML BAG IV ONE (06:48)
[2018-06-23] MEDS ORDERED: NACL 0.9% 50 ML ONE (06:58)
--- NOTE | 2018-06-23 08:08 | Cat Scan Report ---
CT ABDOMEN PELVIS WITH CONTRAST: HISTORY: Left lower quadrant abdominal pain, history of diverticulitis. COMPARISON: 02/20/18. TECHNIQUE: Helical CT in 1.25mm intervals following IV contrast. Sagittal and coronal reconstructions. FINDINGS: Lung bases: Normal. Liver: Normal. Biliary system: Normal. Pancreas: Normal. Spleen: Normal. Kidneys/ureters/bladder: Normal. Adrenal glands: 1.1 cm nodule in the right adrenal gland and 1.5 cm nodule in the left adrenal gland are stable. These may represent small adenomas although they are incompletely characterized on this exam. If further evaluation of the adrenal glands is needed, noncontrast CT or MRI with in and out of phase imaging could be obtained. Aorta: Normal. Intestines: No oral contrast was administered which limits evaluation of the bowel loops. There are several diverticula in the descending colon and sigmoid colon. Focal acute inflammatory changes in the sigmoid colon have resolved since the previous exam. No convincing inflammatory changes consistent with acute diverticulitis are identified on today's exam. The remaining bowel loops are unremarkable. Appendix: The appendix is not confidently identified, correlate with surgical history. Pelvic viscera: Hysterectomy changes are suspected. Ascites: None. Adenopathy: None. Musculoskeletal: Intact. Moderate thoracolumbar spondylosis is noted. L4-5 is the most affected level. IMPRESSION: No acute process is identified in the abdomen or pelvis. Sigmoid diverticulitis has resolved since the previous exam. No convincing findings of acute diverticulitis on today's exam. Bilateral adrenal nodules, stable. Assumed appendectomy and hysterectomy. Thoracolumbar spondylosis.
[2018-06-23 11:42] VITALS: BP 149/74
== END 2018-06-23 11:44 | disposition home or self-care (01) ==
LOC: ED 03:16
DX: K57.30 Diverticulosis of large intestine without perforation or abscess without bleeding (principal); I10 Essential (primary) hypertension; G43.909 Migraine, unspecified, not intractable, without status migrainosus; M13.89 Other specified arthritis, multiple sites
CPT/HCPCS: 36415; 74177; 80053; 81001; 85025; 96365; 96366; 96375; 96376; 99284; J2270; J2405; J2543; J7030; Q9967; Q0162

== ENCOUNTER 2019-04-05 07:15 | Emergency (ER) | payer MEDICARE ==
--- NOTE | 2019-04-05 07:50 | Emergency Department Report ---
ED Neuro Deficit HPI - General Chief Complaint: Dizziness Stated Complaint: NAUSEA,DIZZINESS Time Seen by Provider: 04/05/19 07:30 Source: patient, EMS Mode of arrival: Stretcher Limitations: No Limitations - History of Present Illness Initial Comments: Mrs. Vieira is a 73 yo female with hx of diverticulitis, HTN, CVA, obesity, aneurysm, DVT who presents with dizziness this morning when she awakened at her normal time to go to work. She felt the room spinning. She was able to walk around the house. HOwever the room kept spinning with nausea. No paralysis or paresthesias. NO speech difficulty. She takes baby aspirin. She is taking Xarelto for DVT RLE> -: This morning Location: other (vertigo room spinning and nausea) History of same: No Place: home Severity: moderate Quality: other (generalized weakness no paralysis) Improves With: none Worsens With: none On Anticoagulants: Yes Context: other (noticed when she awakened from sleep) Associated Symptoms: denies other symptoms - Related Data Home Medications: Home Medications Medication Instructions Recorded Confirmed Last Taken AtorvaSTATin [Lipitor] 40 mg PO QHS 04/05/19 04/05/19 Unknown Lisinopril [Zestril TAB] 40 mg PO QDAY 04/05/19 04/05/19 Unknown Rivaroxaban [Xarelto] 10 mg PO BID 04/05/19 04/05/19 Unknown amLODIPine [Norvasc] 10 mg PO DAILY 04/05/19 04/05/19 Unknown Allergies/Adverse Reactions: Allergies Allergy/AdvReac Type Severity Reaction Status Date / Time No Known Allergies Allergy Verified 06/16/18 13:51 ED Review of Systems ROS: Stated complaint: NAUSEA,DIZZINESS Other details as noted in HPI Comment: All other systems reviewed and negative Constitutional: denies: fever, malaise Cardiovascular: denies: chest pain, palpitations Neurological: vertigo. denies: headache, weakness, numbness, paresthesias, confusion, abnormal gait ED Past Medical Hx - Past Medical History Previous Medical History?: Yes Hx Hypertension: Yes Hx Arthritis: Yes (bilateral shoulders/back/left hip/bilateral legs/left ankle) Hx Headaches / Migraines: Yes Additional medical history: "I have a hole in my colon" - Surgical History Hx Breast Surgery: Yes Additional Surgical History: 3 HEAD ANEURYSM CLIPPINGS - Social History Smoking Status: Never Smoker Other Social History: lives with daughter, works as a cook serving breakfast - Medications Home Medications: Home Medications Medication Instructions Recorded Confirmed Last Taken Type AtorvaSTATin [Lipitor] 40 mg PO QHS 04/05/19 04/05/19 Unknown History Lisinopril [Zestril TAB] 40 mg PO QDAY 04/05/19 04/05/19 Unknown History Rivaroxaban [Xarelto] 10 mg PO BID 04/05/19 04/05/19 Unknown History amLODIPine [Norvasc] 10 mg PO DAILY 04/05/19 04/05/19 Unknown History ED Neuro Physical Exam - General Limitations: No Limitations General appearance: alert, in no apparent distress Suspected Stroke: No - Head Head exam: Present: atraumatic, normocephalic - Eye Eye exam: Present: normal appearance - ENT ENT exam: Present: mucous membranes moist - Neck Neck exam: Present: normal inspection, full ROM - Respiratory Respiratory exam: Present: normal lung sounds bilaterally. Absent: respiratory distress, wheezes, rales, rhonchi - Cardiovascular Cardiovascular Exam: Present: regular rate, normal rhythm, normal heart sounds. Absent: systolic murmur, diastolic murmur, rubs, gallop - GI/Abdominal GI/Abdominal exam: Present: soft, normal bowel sounds. Absent: distended, tenderness, guarding, rebound - Extremities Exam Extremities exam: Present: normal inspection - Back Exam Back exam: Present: normal inspection - Neurological Exam Neurological exam: Present: alert, oriented X3 - NIHSS Assessment Interval: Baseline 1a. Level of Consciousness: alert/keenly responsive 1b. LOC Questions: answers both correctly 1c. LOC Commands: performs tasks correctly 2. Best Gaze: normal 3. Visual: no visual loss 4. Facial Palsy: normal symmetrical movement 5b. Motor Arm Right: no drift 5a. Motor Arm Left: no drift 6a. Motor Leg Left: no drift 6b. Motor Leg Right: no drift 7. Limb Ataxia: absent 8. Sensory: normal 9. Best Language: no aphasia 10. Dysarthria: normal 11. Extinction/Inattention: no abnormality Total Score: 0 Stroke Severity: No Stroke Symptoms - Psychiatric Psychiatric exam: Present: normal affect, normal mood - Skin Skin exam: Present: warm, dry, intact, normal color. Absent: rash ED Course Vital Signs 04/05/19 04/05/19 04/05/19 07:28 07:33 07:45 Temperature Pulse Rate 70 67 Respiratory 15 16 17 Rate Blood Pressure 160/65 Blood Pressure 150/70 [Left] O2 Sat by Pulse 99 99 99 Oximetry 04/05/19 04/05/19 04/05/19 08:24 09:00 09:49 Temperature 98 F Pulse Rate 71 62 64 Respiratory 12 16 16 Rate Blood Pressure 134/62 Blood Pressure 160/65 143/65 [Left] O2 Sat by Pulse 99 98 98 Oximetry - Lab Data Result diagrams: 04/05/19 09:10 04/05/19 09:10 Lab Results 04/05/19 04/05/19 Range/Units 09:10 09:10 WBC 4.1 L (4.5-11.0) K/mm3 RBC 4.82 (3.65-5.03) M/mm3 Hgb 13.9 (10.1-14.3) gm/dl Hct 41.7 (30.3-42.9) % MCV 87 (79-97) fl MCH 29 (28-32) pg MCHC 33 (30-34) % RDW 14.8 (13.2-15.2) % Plt Count 194 (140-440) K/mm3 Baso % (Auto) Kindergarten Prep Teacher Add Manual Diff Complete Total Counted 100 Seg Neuts % (Manual) 62.0 (40.0-70.0) % Band Neutrophils % 0 % Lymphocytes % (Manual) 25.0 (13.4-35.0) % Reactive Lymphs % (Man) 0 % Monocytes % (Manual) 8.0 H (0.0-7.3) % Eosinophils % (Manual) 2.0 (0.0-4.3) % Basophils % (Manual) 3.0 H (0.0-1.8) % Metamyelocytes % 0 % Myelocytes % 0 % Promyelocytes % 0 % Blast Cells % 0 % Nucleated RBC % Not Reportable Seg Neutrophils # Man 2.5 (1.8-7.7) K/mm3 Band Neutrophils # 0.0 K/mm3 Lymphocytes # (Manual) 1.0 L (1.2-5.4) K/mm3 Abs React Lymphs (Man) 0.0 K/mm3 Monocytes # (Manual) 0.3 (0.0-0.8) K/mm3 Eosinophils # (Manual) 0.1 (0.0-0.4) K/mm3 Basophils # (Manual) 0.1 (0.0-0.1) K/mm3 Metamyelocytes # 0.0 K/mm3 Myelocytes # 0.0 K/mm3 Promyelocytes # 0.0 K/mm3 Blast Cells # 0.0 K/mm3 WBC Morphology Not Reportable Hypersegmented Neuts Not Reportable Hyposegmented Neuts Not Reportable Hypogranular Neuts Not Reportable Smudge Cells Not Reportable Toxic Granulation Not Reportable Toxic Vacuolation Not Reportable Dohle Bodies Not Reportable Pelger-Huet Anomaly Not Reportable Chevy Rods Not Reportable Platelet Estimate Consistent w auto Clumped Platelets Not Reportable Plt Clumps, EDTA Not Reportable Large Platelets Not Reportable Giant Platelets Not Reportable Platelet Satelliting Not Reportable Plt Morphology Comment Not Reportable RBC Morphology Normal Dimorphic RBCs Not Reportable Polychromasia Not Reportable Hypochromasia Not Reportable Poikilocytosis Not Reportable Anisocytosis Not Reportable Microcytosis Not Reportable Macrocytosis Not Reportable Spherocytes Not Reportable Pappenheimer Bodies Not Reportable Sickle Cells Not Reportable Target Cells Not Reportable Tear Drop Cells Not Reportable Ovalocytes Not Reportable Helmet Cells Not Reportable [place] Bodies Not Reportable [place] Rings Not Reportable [place] Cells Not Reportable Bite Cells Not Reportable Crenated Cell Not Reportable Elliptocytes Not Reportable Acanthocytes (Spur) Not Reportable Rouleaux Not Reportable Hemoglobin C Crystals Not Reportable Schistocytes Not Reportable Malaria parasites Not Reportable Ranjeet Bodies Not Reportable Hem Pathologist Commnt No Sodium 146 H (137-145) mmol/L Potassium 3.8 (3.6-5.0) mmol/L Chloride 106.1 (98-107) mmol/L Carbon Dioxide 29 (22-30) mmol/L Anion Gap 15 mmol/L BUN 9 (7-17) mg/dL Creatinine 0.6 L (0.7-1.2) mg/dL Estimated GFR > 60 ml/min BUN/Creatinine Ratio 15 % Glucose 119 H (65-100) mg/dL Calcium 9.5 (8.4-10.2) mg/dL - EKG Data EKG shows normal: sinus rhythm, axis, intervals, QRS complexes, ST-T waves Rate: normal - Medical Decision Making Mrs. Vieira presents for nausea and vertigo. Normal neural exam. No other symptoms indicate CVA. She had evaluation last year for CVA symptoms. At that time, no evidence of of CVA. CVA was essentially ruled out. Differential diagnoses include benign positional vertigo, CVA, hypertensive urgency, anemia, electrolyte imbalance On exam at this time, she appears comfortable alert. Normal neurological exam in spite subjective dizziness.. Mrs. Vieira understands to call 911 for worsening or new symptoms. Our nurse confirmed that Mrs. Vieira is taking aspirin and Xarelto. She would be at low risk for ischemic CVA with this treatment. Upon observation, Mrs. Javier felt much better. She had many questions regarding the DVT. She was just diagnosed with DVT on Thursday at [facility]. 2 weeks prior she had angiogram to monitor and investigate known intracranial aneurysm. Her [place] physician feels that the DVT was caused by the invasive study. She was given reassurance and education regarding anticoagulation. She will see her primary physician tomorrow. She had a previously scheduled appointment. Critical care attestation.: If time is entered above; I have spent that time in minutes in the direct care of this critically ill patient, excluding procedure time. ED Disposition Clinical Impression: Benign positional vertigo Disposition: DC-01 TO HOME OR SELFCARE Is pt being admited?: No Does the pt Need Aspirin: No Condition: Stable Instructions: Vertigo (ED), Benign Paroxysmal Positional Vertigo (ED) Referrals: PRIMARY CARE, [Referring] - 2-3 Days
[2019-04-05] MEDS ORDERED: ANTIVERT PO ONE ×2 (07:52→10:59)
[2019-04-05] MEDS ORDERED: ZOFRAN ODT PO ONE ×2 (07:52→11:00)
[2019-04-05] MEDS ORDERED: NORVASC PO ONE (07:53)
[2019-04-05] MEDS ORDERED: ZESTRIL PO ONE (08:19)
[2019-04-05 09:29] LABS: Hematocrit 41.7 % (30.3-42.9); Hemoglobin 13.9 gm/dl (10.1-14.3); Mean Corpuscular HGB Conc 33 % (30-34); Mean Corpuscular Volume 87 fl (79-97); Platelet Count 194 K/mm3 (140-440); Red Blood Count 4.82 M/mm3 (3.65-5.03); Red Cell Distribution Width 14.8 % (13.2-15.2)
[2019-04-05 11:00] LABS: BUN/Creatinine Ratio 15; Blood Urea Nitrogen 9 mg/dL (7-17); Calcium 9.5 mg/dL (8.4-10.2); Hemolysis Index 4
[2019-04-05 11:36] LABS: Platelet Estimate Consistent w Auto; RBC Morphology Normal; Total Cells Counted 100
--- NOTE | 2019-04-05 13:10 | Cat Scan Report ---
CT HEAD WITHOUT CONTRAST INDICATION : vertigo dizziness. TECHNIQUE: Axial imaging performed from the skull apex through the skull base without the use of con trast. All CT scans at this location are performed using CT dose reduction for ALARA by means of aut omated exposure control. COMPARISON: CT head report dated 06/19/2018 FINDINGS: Parenchyma: No acute intracranial hemorrhage or parenchymal abnormality. Aneurysm coils are noted al hu the course of the right MCA and left side of the [place], correlate with history. Ventricles: Ventricles are normal in size and appear symmetric. Soft tissues: Soft tissues including the orbits appear normal. Bones: No acute osseous abnormality. Chronic left medial orbital wall fracture and bilateral frontot emporal craniotomy changes are noted. Sinuses: Sinuses and mastoid air cells are clear. IMPRESSION: No acute abnormality. Signer Name: Prem Bunch Jr, MD Signed: 04/05/2019 12:06 PM Workstation Name: [id number]
[2019-04-05 13:26] VITALS: BP 148/68
== END 2019-04-05 13:50 | disposition home or self-care (01) ==
LOC: ED 07:15
DX: H81.10 Benign paroxysmal vertigo, unspecified ear (principal); I10 Essential (primary) hypertension; M19.90 Unspecified osteoarthritis, unspecified site; G43.909 Migraine, unspecified, not intractable, without status migrainosus; Z98.890 Other specified postprocedural states; Z79.899 Other long term (current) drug therapy
CPT/HCPCS: 36415; 70450; 80048; 85007; 85025; 93005; 93010; 99284; Q0162

== ENCOUNTER 2019-04-18 18:01 | Emergency (ER) | payer MEDICARE ==
--- NOTE | 2019-04-18 18:24 | Emergency Department Report ---
Blank Doc - Documentation Documentation: This is a 73-year-old female that presents with right foot pain. This initial assessment/diagnostic orders/clinical plan/treatment(s) is/are subject to change based on patient's health status, clinical progression and re- assessment by fellow clinical providers in the ED. Further treatment and workup at subsequent clinical providers discretion. Patient/guardians urged not to elope from the ED as their condition may be serious if not clinically assessed and managed. Initial orders include: 1- Patient sent to [facility] for further evaluation and treatment 2- xray
--- NOTE | 2019-04-18 19:02 | XRay Report ---
RIGHT FOOT 4 VIEWS INDICATION / CLINICAL INFORMATION: foot pain COMPARISON: None available. FINDINGS: BONES / JOINT(S): There is a fracture of the proximal phalanx of the fourth toe is mildly displaced. There is degenerative change in the ankle joint and in the interphalangeal joints. There is a possibl e loose body along the anterior aspect of the ankle joint. SOFT TISSUES: No significant abnormality. ADDITIONAL FINDINGS: None. Signer Name: Roby Andres MD Signed: 04/18/2019 6:57 PM Workstation Name: [id number]
[2019-04-18 20:56] VITALS: BP 142/61
[2019-04-18] MEDS ORDERED: ULTRAM PO ONE (21:41)
--- NOTE | 2019-04-18 21:46 | Emergency Department Report ---
ED Lower Extremity HPI - General Chief Complaint: Extremity Injury, Lower Stated Complaint: R FOOT PAIN Time Seen by Provider: 04/18/19 18:23 Source: patient Mode of arrival: Ambulatory Limitations: No Limitations - History of Present Illness Initial Comments: Mrs. Vieira is a very pleasant female who presents with injury to her toe. She struck her toe on the end of a bed frame this afternoon approximately 1 PM. She is concerned about bruising. She is currently taking anticoagulation for thrombosis in the same extremity. She has severe toe pain. Pain worse with movement and touch. Complaint: foot injury -: Sudden, This afternoon Injury: Foot: Right, Toes: Right Type of Injury: blunt Place: home Severity: mild Worsens With: weight bearing, movement, palpation Context: direct blow - Related Data Home Medications Medication Instructions Recorded Confirmed Last Taken AtorvaSTATin [Lipitor] 40 mg PO QHS 04/05/19 04/05/19 Unknown Lisinopril [Zestril TAB] 40 mg PO QDAY 04/05/19 04/05/19 Unknown Rivaroxaban [Xarelto] 10 mg PO BID 04/05/19 04/05/19 Unknown amLODIPine [Norvasc] 10 mg PO DAILY 04/05/19 04/05/19 Unknown Previous Rx's Medication Instructions Recorded Last Taken Type traMADol [Ultram 50 MG tab] 50 mg PO Q6HR PRN #20 tablet 04/18/19 Unknown Rx Allergies Allergy/AdvReac Type Severity Reaction Status Date / Time No Known Allergies Allergy Verified 06/16/18 13:51 ED Review of Systems ROS: Stated complaint: R FOOT PAIN Other details as noted in HPI Constitutional: denies: fever, malaise Musculoskeletal: denies: joint swelling, arthralgia Skin: change in color ED Past Medical Hx - Past Medical History Previous Medical History?: Yes Hx Hypertension: Yes Hx Arthritis: Yes (bilateral shoulders/back/left hip/bilateral legs/left ankle) Hx Headaches / Migraines: Yes Additional medical history: "I have a hole in my colon", RL blood clot 04/2019,elevated cholesterol - Surgical History Past Surgical History?: Yes Hx Breast Surgery: Yes Additional Surgical History: 3 HEAD ANEURYSM CLIPPINGS - Social History Smoking Status: Current Every Day Smoker Substance Use Type: None - Medications Home Medications: Home Medications Medication Instructions Recorded Confirmed Last Taken Type AtorvaSTATin [Lipitor] 40 mg PO QHS 04/05/19 04/05/19 Unknown History Lisinopril [Zestril TAB] 40 mg PO QDAY 04/05/19 04/05/19 Unknown History Rivaroxaban [Xarelto] 10 mg PO BID 04/05/19 04/05/19 Unknown History amLODIPine [Norvasc] 10 mg PO DAILY 04/05/19 04/05/19 Unknown History traMADol [Ultram 50 MG tab] 50 mg PO Q6HR PRN #20 tablet 04/18/19 Unknown Rx ED Physical Exam - General Limitations: No Limitations General appearance: alert, in no apparent distress - Head Head exam: Present: atraumatic, normocephalic - Respiratory Respiratory exam: Absent: respiratory distress - Neurological Exam Neurological exam: Present: alert, oriented X3 - Psychiatric Psychiatric exam: Present: normal affect, normal mood - Skin Skin exam: Present: warm, dry, intact, normal color - Other Other exam information: Right foot: 2+ DP pulses intact, no obvious deformity or swelling. ED Course Vital Signs 04/18/19 04/18/19 18:22 20:40 Temperature 98.3 F 98.2 F Pulse Rate 74 68 Respiratory 16 20 Rate Blood Pressure 134/62 Blood Pressure 142/61 [Right] O2 Sat by Pulse 98 100 Oximetry ED Lower Extremity MDM - Radiology Data Radiology results: report reviewed Fourth Phalanx fracture mildly displaced no other injuries according to radiology report of left foot - Medical Decision Making For phalanx fracture, I personally applied hannah tape to the third and fourth toes. After application of the hannah tape to the digits, neurovascularly intact extremity. I provided reassurance. Provided tramadol in ED. Prescribed tramadol. Referred to jewelry salesperson. Critical care attestation.: If time is entered above; I have spent that time in minutes in the direct care of this critically ill patient, excluding procedure time. ED Disposition Clinical Impression: Closed fracture of phalanx of right fourth toe Disposition: - TO HOME OR SELFCARE Is pt being admited?: No Does the pt Need Aspirin: No Condition: Stable Instructions: Toe Fracture (ED) Prescriptions: traMADol [Ultram 50 MG tab] 50 mg PO Q6HR PRN #20 tablet PRN Reason: Pain Referrals: EWA DURANT DPM [Staff Physician] - 7-10 days
[2019-04-18] MEDS ORDERED: TYLENOL PO ONE (21:52)
== END 2019-04-18 22:45 | disposition home or self-care (01) ==
LOC: ED 18:01
DX: S92.511A Displaced fracture of proximal phalanx of right lesser toe(s), initial encounter for closed fracture (principal); I10 Essential (primary) hypertension; M19.90 Unspecified osteoarthritis, unspecified site; G43.909 Migraine, unspecified, not intractable, without status migrainosus; E78.00 Pure hypercholesterolemia, unspecified; F17.200 Nicotine dependence, unspecified, uncomplicated; Z98.890 Other specified postprocedural states; Z79.899 Other long term (current) drug therapy; W22.8XXA Striking against or struck by other objects, initial encounter; Y93.89 Activity, other specified; Y92.099 Unspecified place in other non-institutional residence as the place of occurrence of the external cause; Y99.8 Other external cause status
CPT/HCPCS: 99283

== ENCOUNTER 2019-10-07 09:36 | Emergency (ER) | payer MEDICARE ==
[2019-10-07 10:06] LABS: Hematocrit 43.5 % (30.3-42.9); Hemoglobin 14.4 gm/dl (10.1-14.3); Mean Corpuscular HGB Conc 33 % (30-34); Mean Corpuscular Volume 87 fl (79-97); Platelet Count 210 K/mm3 (140-440); Red Blood Count 5.02 M/mm3 (3.65-5.03); Red Cell Distribution Width 14.4 % (13.2-15.2)
[2019-10-07 10:13] LABS: INR 1.03 (0.87-1.13); Partial Thromboplastin Time 28.2 Sec. (24.2-36.6)
[2019-10-07 10:19] LABS: Basophils % (Auto) 0.9 % (0.0-1.8); Eosinophils # (Auto) 0.2 K/mm3 (0.0-0.4); Eosinophils % (Auto) 4.5 % (0.0-4.3); Lymphocytes # (Auto) 1.5 K/mm3 (1.2-5.4); Lymphocytes % (Auto) 39.1 % (13.4-35.0); Monocytes # (Auto) 0.3 K/mm3 (0.0-0.8); Monocytes % (Auto) 7.8 % (0.0-7.3)
[2019-10-07 10:22] LABS: BUN/Creatinine Ratio 35; Blood Urea Nitrogen 21 mg/dL (7-17); Calcium 9.9 mg/dL (8.4-10.2); Hemolysis Index 18
[2019-10-07] MEDS ORDERED: ONDANSETRON 4 MG/2 ML INJ IV ONE (10:38)
[2019-10-07] MEDS ORDERED: MORPHINE 4 MG/1 ML INJ IV ONE (10:38)
--- NOTE | 2019-10-07 11:01 | Emergency Department Report ---
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 Patient has intermittent left frontal headache radii/10 in intensity. No aggravating or alleviating factors. Patient complains of blurred vision, generalized weakness, and initially stumbling when she walks. Patient has had vertigo in the past. Patient's doctors are [facility]. Allergies/Adverse Reactions: Allergies No Known Allergies Allergy (Verified 06/16/18 13:51) Home Medications: Ambulatory Orders AtorvaSTATin [Lipitor] 40 mg PO QHS 04/05/19 Rivaroxaban [Xarelto] 10 mg PO BID 04/05/19 amLODIPine [Norvasc] 10 mg PO DAILY 04/05/19 lisinopriL [Zestril TAB] 40 mg PO QDAY 04/05/19 traMADoL [Ultram 50 MG tab] 50 mg PO Q6HR PRN #20 tablet 04/18/19 HYDROcodone/APAP 5-325 [[place] 5/325] 1 each PO Q6HR PRN #10 tablet 10/07/19 ED Review of Systems ROS: Stated complaint: HEADACHE,WEAKNESS Other details as noted in HPI Comment: All other systems reviewed and negative ED Past Medical Hx - Past Medical History Previous Medical History?: Yes Hx Hypertension: Yes Hx Arthritis: Yes (bilateral shoulders/back/left hip/bilateral legs/left ankle) Hx Headaches / Migraines: Yes Additional medical history: "I have a hole in my colon", RL blood clot 04/2019,elevated cholesterol - Surgical History Past Surgical History?: Yes Hx Breast Surgery: Yes Additional Surgical History: 3 HEAD ANEURYSM CLIPPINGS - Social History Smoking Status: Never Smoker Substance Use Type: None - Medications Home Medications: Home Medications Medication Instructions Recorded Confirmed Last Taken Type AtorvaSTATin [Lipitor] 40 mg PO QHS 04/05/19 04/05/19 Unknown History Rivaroxaban [Xarelto] 10 mg PO BID 04/05/19 04/05/19 Unknown History amLODIPine [Norvasc] 10 mg PO DAILY 04/05/19 04/05/19 Unknown History lisinopriL [Zestril TAB] 40 mg PO QDAY 04/05/19 04/05/19 Unknown History traMADoL [Ultram 50 MG tab] 50 mg PO Q6HR PRN #20 tablet 04/18/19 Unknown Rx HYDROcodone/APAP 5-325 [[place] 1 each PO Q6HR PRN #10 tablet 10/07/19 Unknown Rx 5/325] ED Physical Exam - General Limitations: No Limitations - Other Other exam information: General: No acute distress Head: Atraumatic Eyes: normal appearance, pupils equal reactive to light, extraocular movements intact, poor vision in left eye ENT: Moist mucous membranes Neck: Normal appearance, no midline tenderness, no nuchal rigidity Chest: Clear to auscultation bilaterally CV: Regular rate and rhythm Abdomen: Soft, normal bowel sounds, nontender, nondistended, no rebound or guarding Back: Normal inspection Extremity: Normal inspection, full range of motion Neuro: Alert O x 3, no facial asymmetry, speech clear, no gross motor sensory deficit, [id number] function intact, lateral visual field right eye intact Psych: Appropriate behavior Skin: No rash ED Course Vital Signs 10/07/19 10/07/19 10/07/19 09:37 10:17 11:59 Temperature 98.7 F 98.7 F Pulse Rate 91 H 76 Respiratory 18 16 Rate Blood Pressure 199/107 Blood Pressure 170/70 174/56 [Right] O2 Sat by Pulse 98 99 Oximetry - Reevaluation(s) Reevaluation #1: 10/07/19 17:15 I walked patient and patient is able to ambulate without difficulty and states she feels back to normal ED Medical Decision Making - Lab Data Result diagrams: 10/07/19 09:52 10/07/19 09:52 Lab Results 10/07/19 10/07/19 10/07/19 Range/Units 09:52 09:52 09:52 WBC 4.1 L (4.5-11.0) K/mm3 RBC 5.02 (3.65-5.03) M/mm3 Hgb 14.4 H (10.1-14.3) gm/dl Hct 43.5 H (30.3-42.9) % MCV 87 (79-97) fl MCH 29 (28-32) pg MCHC 33 (30-34) % RDW 14.4 (13.2-15.2) % Plt Count 210 (140-440) K/mm3 Lymph % (Auto) 39.1 H (13.4-35.0) % Andrew % (Auto) 7.8 H (0.0-7.3) % Eos % (Auto) 4.5 H (0.0-4.3) % Baso % (Auto) 0.9 (0.0-1.8) % Lymph # 1.5 (1.2-5.4) K/mm3 Andrew # 0.3 (0.0-0.8) K/mm3 Eos # 0.2 (0.0-0.4) K/mm3 Baso # 0.0 (0.0-0.1) K/mm3 Seg Neutrophils % 47.7 (40.0-70.0) % Seg Neutrophils # 1.8 (1.8-7.7) K/mm3 PT 13.6 (12.2-14.9) Sec. INR 1.03 (0.87-1.13) APTT 28.2 (24.2-36.6) Sec. Thrombin Time (15.1-19.6) Sec. Sodium 144 (137-145) mmol/L Potassium 3.8 (3.6-5.0) mmol/L Chloride 106.0 (98-107) mmol/L Carbon Dioxide 24 (22-30) mmol/L Anion Gap 18 mmol/L BUN 21 H (7-17) mg/dL Creatinine 0.6 L (0.7-1.2) mg/dL Estimated GFR > 60 ml/min BUN/Creatinine Ratio 35 % Glucose 112 H (65-100) mg/dL POC Glucose (70-105) Calcium 9.9 (8.4-10.2) mg/dL Troponin T < 0.010 (0.00-0.029) ng/mL 10/07/19 10/07/19 Range/Units 09:52 10:02 WBC (4.5-11.0) K/mm3 RBC (3.65-5.03) M/mm3 Hgb (10.1-14.3) gm/dl Hct (30.3-42.9) % MCV (79-97) fl MCH (28-32) pg MCHC (30-34) % RDW (13.2-15.2) % Plt Count (140-440) K/mm3 Lymph % (Auto) (13.4-35.0) % Andrew % (Auto) (0.0-7.3) % Eos % (Auto) (0.0-4.3) % Baso % (Auto) (0.0-1.8) % Lymph # (1.2-5.4) K/mm3 Andrew # (0.0-0.8) K/mm3 Eos # (0.0-0.4) K/mm3 Baso # (0.0-0.1) K/mm3 Seg Neutrophils % (40.0-70.0) % Seg Neutrophils # (1.8-7.7) K/mm3 PT (12.2-14.9) Sec. INR (0.87-1.13) APTT (24.2-36.6) Sec. Thrombin Time 15.9 (15.1-19.6) Sec. Sodium (137-145) mmol/L Potassium (3.6-5.0) mmol/L Chloride (98-107) mmol/L Carbon Dioxide (22-30) mmol/L Anion Gap mmol/L BUN (7-17) mg/dL Creatinine (0.7-1.2) mg/dL Estimated GFR ml/min BUN/Creatinine Ratio % Glucose (65-100) mg/dL POC Glucose 105 (70-105) Calcium (8.4-10.2) mg/dL Troponin T (0.00-0.029) ng/mL - EKG Data -: EKG Interpreted by Nv EKG shows normal: sinus rhythm, ST-T waves (no stemi) Rate: normal (86) - Radiology Data Radiology results: report reviewed CT head without contrast INDICATION : neuro deficits. TECHNIQUE: Axial imaging performed from the skull apex through the skull base without the use of contrast. All CT scans at this location are performed using CT dose reduction for ALARA by means of automated exposure control. COMPARISON: CT head from 04/05/2019 FINDINGS: Parenchyma: No acute intracranial hemorrhage or parenchymal abnormality. Aneurysm clips are seen in the middle cranial fossa. Ventricles: Ventricles are normal in size and appear symmetric. Soft tissues: Soft tissues including the orbits appear normal. Bones: Old craniotomy change. No acute osseous abnormality. Sinuses: Sinuses and mastoid air cells are clear. IMPRESSION: No acute abnormality. CTA HEAD WITH CONTRAST HISTORY: Headache, history of cerebral aneurysm. COMPARISON: Previous CTA head on 06/16/2018. TECHNIQUE: All CT scans at this location are performed using CT dose reduction for ALARA by means of automated exposure control.. 3-D/MIP reformats postprocessed. Percentage stenosis is determined by direct quantitative measurements of diseased internal carotid artery diameter compared with normal distal internal carotid artery reference segments or by criteria similar to NASCET where applicable. CONTRAST: 100 ml of Omnipaque 300 FINDINGS: CTA HEAD: Intracranial vertebral arteries: No significant abnormality. Basilar artery: No significant abnormality. Posterior cerebral arteries: No significant abnormality. Intracranial internal carotid arteries: There is atherosclerotic calcification in the bilateral carotid siphons without focal significant stenosis. There has been previous clipping of a left ophthalmic segment ICA aneurysm without recurrent aneurysm. 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 Middle cerebral arteries: Previous clipping of right MCA bifurcation aneurysm without discrete recurrent aneurysm. Dural venous sinuses:Not optimally opacified. No significant abnormality. IMPRESSION: 1. Right anterior communicating artery aneurysm is stable compared with previous CTA head on 06/16/2018. 2. No flow limiting stenosis or large vessel occlusion the intracranial arteries. 3. Previous clipping of left ophthalmic ICA aneurysm and right MCA bifurcation aneurysm without discrete aneurysm recurrence in those locations. - Medical Decision Making stable cerebral aneurysm without signs of acute hemorrhage and patient lacks no rigidity or neck pain. Patient has been pain free since initial dose of morphine and patient has several hours observation in ED without recurrent pain. At disposition patient is able to ambulate without difficulty. - Differential Diagnosis anthony, vertigo, ich, mass, anemia, infectoin Critical Care Time: No Critical care attestation.: If time is entered above; I have spent that time in minutes in the direct care of this critically ill patient, excluding procedure time. ED Disposition Clinical Impression: Headache, Cerebral aneurysm, Hypertension Disposition: DC- TO HOME OR SELFCARE Is pt being admited?: No Does the pt Need Aspirin: No Condition: Stable Instructions: Hypertension (ED), Acute Headache (ED) Additional Instructions: Take the medication as prescribed. Follow-up with your doctor or doctor/clinic provided. Return if symptoms worsen as indicated by your discharge instructions. Prescriptions: HYDROcodone/APAP 5-325 [[place] 5/325] 1 each PO Q6HR PRN #10 tablet PRN Reason: Pain [facility]errals: [facility] [Primary Care Provider] - 3-5 Days Time of Disposition: 17:18
--- NOTE | 2019-10-07 15:20 | Cat Scan Report ---
CT head without contrast INDICATION : neuro deficits. TECHNIQUE: Axial imaging performed from the skull apex through the skull base without the use of con trast. All CT scans at this location are performed using CT dose reduction for ALARA by means of aut omated exposure control. COMPARISON: CT head from 04/05/2019 FINDINGS: Parenchyma: No acute intracranial hemorrhage or parenchymal abnormality. Aneurysm clips are seen in the middle cranial fossa. Ventricles: Ventricles are normal in size and appear symmetric. Soft tissues: Soft tissues including the orbits appear normal. Bones: Old craniotomy change. No acute osseous abnormality. Sinuses: Sinuses and mastoid air cells are clear. IMPRESSION: No acute abnormality. Signer Name: Luis Horton MD Signed: 10/07/2019 3:16 PM Workstation Name: [id number]
--- NOTE | 2019-10-07 15:43 | Cat Scan Report ---
CTA HEAD WITH CONTRAST HISTORY: Headache, history of cerebral aneurysm. COMPARISON: Previous CTA head on 06/16/2018. TECHNIQUE: All CT scans at this location are performed using CT dose reduction for ALARA by means of automated exposure control.. 3-D/MIP reformats postprocessed. Percentage stenosis is determined by d irect quantitative measurements of diseased internal carotid artery diameter compared with normal dis joni internal carotid artery reference segments or by criteria similar to NASCET where applicable. CONTRAST: 100 ml of Omnipaque 300 FINDINGS: CTA HEAD: Intracranial vertebral arteries: No significant abnormality. Basilar artery: No significant abnormality. Posterior cerebral arteries: No significant abnormality. Intracranial internal carotid arteries: There is atherosclerotic calcification in the bilateral carot id siphons without focal significant stenosis. There has been previous clipping of a left ophthalmic segment ICA aneurysm without recurrent aneurysm. 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 There is stable developmental hyp oplasia of the left A1 segment. Middle cerebral arteries: Previous clipping of right MCA bifurcation aneurysm without discrete recurr ent aneurysm. Dural venous sinuses:Not optimally opacified. No significant abnormality. IMPRESSION: 1. Right anterior communicating artery aneurysm is stable compared with previous CTA head on 8. 2. No flow limiting stenosis or large vessel occlusion the intracranial arteries. 3. Previous clipping of left ophthalmic ICA aneurysm and right MCA bifurcation aneurysm without discr ete aneurysm recurrence in those locations. Signer Name: Mata Piña MD Signed: 10/07/2019 3:39 PM Workstation Name: [id number]
[2019-10-07 17:24] VITALS: BP 164/90
== END 2019-10-07 17:34 | disposition home or self-care (01) ==
LOC: ED 09:36
DX: I67.1 Cerebral aneurysm, nonruptured (principal); I10 Essential (primary) hypertension; M19.90 Unspecified osteoarthritis, unspecified site; G43.909 Migraine, unspecified, not intractable, without status migrainosus
CPT/HCPCS: 36415; 70450; 70496; 80048; 82962; 84484; 85025; 85610; 85670; 85730; 93005; 93010; 96374; 96375; 99285; J2270; J2405; Q9967